=== PATIENT | female | born 1950 | race Hispanic/Latino ===

== ENCOUNTER 2018-04-05 22:56 | Inpatient (IN) | payer OTHER ==
[~2018-04-05] VITALS: Ht 154.9 cm; Wt 55.8 kg
[2018-04-05] MEDS ORDERED: NITROGLYCERIN 5 MG/ML 10 ML VIAL IV ONE (22:59)
[2018-04-05] MEDS ORDERED: IOPAMIDOL-370 100 ML VIAL IV ONE (22:59)
[2018-04-05] MEDS ORDERED: ISOVUE-370 50ML VIAL IV ONE (22:59)
[2018-04-05] MEDS ORDERED: LIDOCAINE HCL 2% 20ML ONE ×2 (22:59→23:37)
[2018-04-05] MEDS ORDERED: HEPARIN SODIUM 1000UNIT/ML 10ML VIAL ONE (22:59)
[2018-04-05] MEDS ORDERED: SODIUM BICARB 50MEQ 50ML VIAL ONE (22:59)
[2018-04-05] MEDS ORDERED: ATROPINE SULFATE 0.1 MG/ML 10 ML SYG IVP ONE (23:06)
[2018-04-05] MEDS ORDERED: DOPAMINE HCL 400 MG/D5%-WATER 0 ML IV ONE (23:06)
[2018-04-05] MEDS ORDERED: MEPERIDINE-PF 25 MG/ML SYG ONE (23:41)
[2018-04-05] MEDS ORDERED: MIDAZOLAM HCL 1 MG/ML 2ML VIAL ONE (23:41)
[2018-04-06] VITALS (49 sets, daily range): BP systolic 78–174; BP diastolic 38–113
[2018-04-06] MEDS ORDERED: MORPHINE SULFATE 5 MG/ML VIAL IV PRN (00:45)
[2018-04-06] MEDS ORDERED: ONDANSETRON HCL MDV 20ML 2 MG/ML VIAL IVP PRN (00:45)
[2018-04-06] MEDS ORDERED: GLUCAGON 1MG KIT 1 MG ML IM PRN ×2 (00:45→13:15)
[2018-04-06] MEDS ORDERED: NITROGLYCERIN 50 MG/D5% WATER 250 BOT IV PRN (00:45)
[2018-04-06] MEDS ORDERED: MORPHINE SULFATE 4 MG/1ML SYG IV PRN ×3 (00:45→13:15)
[2018-04-06] MEDS ORDERED: ALPRAZOLAM 0.5 MG TABLET PO PRN (00:45)
[2018-04-06] MEDS ORDERED: DEXTROSE 50%-WATER 50 ML DISP.SYRIN IV PRN ×2 (00:45→13:15)
[2018-04-06] MEDS ORDERED: POTASSIUM CHLORIDE 20MEQ/100ML 100 ML IV PRN (01:00)
[2018-04-06] MEDS ORDERED: LIDOCAINE HCL-MPF 1% 2ML VIAL IVP PRN (01:00)
[2018-04-06] MEDS ORDERED: POTASSIUM CHLORIDE 10% ELIXIR 20 MEQ/15 ML UDCUP PO PRN (01:00)
[2018-04-06] MEDS ORDERED: POTASSIUM CHLORIDE 20 MEQ ERTAB PO PRN (01:00)
[2018-04-06] MEDS ORDERED: HEPARIN 25000 UNITS/250 ML D5W 250 ML IV SCH (01:00)
[2018-04-06] MEDS ORDERED: HEPARIN SODIUM 5000UNIT/ML 1ML VIAL ONE (01:45)
[2018-04-06 02:05] LABS: BASOPHILS % (AUTO) 0.3 % (0.0-5.0); EOSINOPHILS % (AUTO) 0.4 % (0.0-8.0); HEMATOCRIT 39.8 % (36-48); LYMPHOCYTES % (AUTO) 9.9 % (21.0-51.0); MEAN CORPUSCULAR HEMOGLOBIN 27.8 pg (27.0-33.0); MEAN CORPUSCULAR HGB CONC 33.9 g/dL (32.0-36.0); MEAN CORPUSCULAR VOLUME 82.1 fL (79-99); NEUTROPHILS % (AUTO) 85.4 % (40.0-77.0); PLATELET COUNT (AUTO) 241 K/uL (130-400); RED BLOOD CELL COUNT(AUTO) 4.85 MIL/uL (4.00-5.50); RED CELL DISTRIBUTION WIDTH 13.2 % (11.0-15.5); WHITE BLOOD COUNT (AUTO) 13.9 K/uL (4.8-10.8)
[2018-04-06 02:11] LABS: HEMOGLOBIN A1C 8.9 % (4.0-6.0)
[2018-04-06 02:41] LABS: ALBUMIN 3.2 g/dL (3.5-5.0); BILIRUBIN,TOTAL 0.6 mg/dL (0.2-1.0); CREATINE KINASE MB 110.8 ng/mL (0.5-3.6); CREATININE 0.8 mg/dL (0.5-1.5); POTASSIUM 4.3 mmol/L (3.5-5.1); TOTAL PROTEIN, SERUM 7.3 g/dL (6.0-8.3)
[2018-04-06] MEDS ORDERED: FELO5TAB31 PO (03:01)
[2018-04-06] MEDS ORDERED: BISO1TAB7 PO (03:01)
[2018-04-06] MEDS ORDERED: GLIM2TAB3 PO (03:05)
[2018-04-06] MEDS ORDERED: ENAL20TA PO (03:05)
[2018-04-06 03:27] LABS: TROPONIN I 63.78 ng/mL (0.00-0.06)
[2018-04-06] MEDS ORDERED: HYDRALAZINE HCL 20 MG/ML VIAL ONE (07:07)
[2018-04-06] MEDS ORDERED: CEFUROXIME 1.5GM+NS 100ML 100 ML IV SCH ×2 (07:15→21:15)
[2018-04-06] MEDS ORDERED: HYDRALAZINE HCL 20 MG/ML VIAL IM PRN (07:15)
[2018-04-06] MEDS: SODIUM CHLORIDE 0.9% 1000ML 1,000 ML IV SCH ×3 (07:20→20:35)
[2018-04-06] MEDS: INSULIN HUMULIN R 100 UNIT/ML 3ML SQ SCH ×2 (07:24→11:30)
[2018-04-06] MEDS ORDERED: CEFUROXIME SODIUM 1.5 GM VIAL IVP SCH (07:30)
[2018-04-06] MEDS: AMLODIPINE BESYLATE 5 MG TAB PO SCH ×2 (07:56→09:07)
[2018-04-06] MEDS ORDERED: AMLODIPINE BESYLATE 5 MG TAB PO SCH (08:15)
[2018-04-06 08:45] LABS: CREATINE KINASE MB 99.7 ng/mL (0.5-3.6); CREATININE 0.8 mg/dL (0.5-1.5); POTASSIUM 4.1 mmol/L (3.5-5.1)
[2018-04-06] MEDS ORDERED: EPINEPHRINE 1 MG/ML 30ML VIAL IJ ONE (08:51)
[2018-04-06] MEDS ORDERED: NITROGLYCERIN 50 MG/D5% WATER 1 BOT ONE (08:51)
[2018-04-06] MEDS ORDERED: ASPIRIN 81MG TAB.CHEW PO SCH (09:00)
[2018-04-06] MEDS ORDERED: MAGNESIUM 2GM PREMIX 50ML 50 ML IV PRN (09:00)
[2018-04-06] MEDS ORDERED: OCTYL 2-CYANOACRYLATE 1 EACH TP ONE ×2 (09:25→13:55)
[2018-04-06] MEDS ORDERED: PAPAVERINE HCL 30 MG/ML 2ML VIAL ONE (09:25)
[2018-04-06] MEDS ORDERED: BACITRACIN 50,000 UNIT VIAL ONE (09:26)
[2018-04-06 09:47] LABS: TROPONIN I 87.88 ng/mL (0.00-0.06)
[2018-04-06] MEDS ORDERED: NEOSTIGMINE 5MG/5ML SYR IV ONE (10:07)
[2018-04-06] MEDS ORDERED: EPINEPHRINE 1 MG/ML AMPULE ONE (10:07)
[2018-04-06] MEDS ORDERED: AMINOCAPROIC ACID 250 MG/ML 20 ML VIAL IV ONE (10:07)
[2018-04-06] MEDS ORDERED: FENTANYL CITRATE PF 50 MCG/1 ML 20ML VIAL IJ ONE (10:07)
[2018-04-06] MEDS ORDERED: PROPOFOL 10 MG/ML 20ML VIAL IV ONE (10:07)
[2018-04-06] MEDS ORDERED: ESMOLOL HCL 10 MG/ML 10 ML VIAL ONE (10:07)
[2018-04-06] MEDS ORDERED: ROCURONIUM BROMIDE 10MG/1ML 5ML VL ONE (10:07)
[2018-04-06] MEDS ORDERED: GLYCOPYRROLATE 0.2 MG/ML 5 ML VIAL ONE (10:07)
[2018-04-06] MEDS ORDERED: PROTAMINE SULFATE 10 MG/ML 25ML VIAL IV ONE (10:07)
[2018-04-06] MEDS ORDERED: MILRINONE-D5W 20 MG/100 ML 0 ML IV ONE (10:07)
[2018-04-06] MEDS ORDERED: LIDOCAINE PF 2% 5ML ABBOJECT ONE (10:07)
[2018-04-06] MEDS ORDERED: MIDAZOLAM HCL 1 MG/ML 5ML VIAL ONE (10:07)
[2018-04-06] MEDS ORDERED: HEPARIN SODIUM 1000UNIT/ML 10ML VIAL ONE ×2 (10:07→10:56)
[2018-04-06] MEDS ORDERED: NOREPINEPHRINE BITARTRATE 1 MG/1 ML ML IV ONE ×3 (10:07→15:12)
[2018-04-06] MEDS ORDERED: CEFUROXIME SODIUM 1.5 GM VIAL ONE (10:10)
[2018-04-06 10:47] LABS: ABG BASE EXCESS -3.9 mmol/L (-2.0-3.0); ABG HCO3 20.6 mmol/L (21.0-28.0); ABG OXYGEN SATURATION 99.2 % (95.0-99.0); ABG PCO2 36 mmHg (32-45)
[2018-04-06] MEDS ORDERED: THROMBIN-JMI 5000 UNIT/VIAL TP ONE (10:56)
[2018-04-06 11:50] LABS: ABG BASE EXCESS 0.6 mmol/L (-2.0-3.0); ABG HCO3 24.5 mmol/L (21.0-28.0); ABG OXYGEN SATURATION 99.4 % (95.0-99.0); ABG PCO2 37 mmHg (32-45)
[2018-04-06] MEDS ORDERED: SODIUM CHLORIDE 0.9% 500ML 500 ML IV SCH (13:01)
[2018-04-06] MEDS ORDERED: SODIUM BICARB 8.4% 50ML SYRINGE ONE ×2 (13:11→13:32)
[2018-04-06] MEDS ORDERED: SODIUM CHLORIDE 0.9% 10 ML VIAL IVP PRN (13:15)
[2018-04-06] MEDS ORDERED: POTASSIUM PHOS 15 mMOL+NS250ML 250 ML IV PRN (13:15)
[2018-04-06] MEDS ORDERED: AMINOCAPROIC ACID 15,000 MG in SODIUM CHLORIDE 0.9% 250 ML IV SCH (13:15)
[2018-04-06] MEDS ORDERED: NITROGLYCERIN 50 MG/D5% WATER 250 BOT IV SCH (13:15)
[2018-04-06] MEDS ORDERED: PROPOFOL 1000 MG/100 ML 100 ML IV PRN (13:15)
[2018-04-06] MEDS ORDERED: SODIUM CHLORIDE 0.9% 1000ML 1,000 ML IV SCH (13:15)
[2018-04-06] MEDS ORDERED: NOREPINEPHRINE 4MG/NS 250ML 250 ML IV PRN (13:15)
[2018-04-06] MEDS ORDERED: MORPHINE SULFATE 2 MG/ML 1ML SYG IV PRN (13:15)
[2018-04-06] MEDS ORDERED: SODIUM CHLORIDE 0.9% 250 ML IV PRN (13:15)
[2018-04-06] MEDS ORDERED: NICARDIPINE HCL 100 MG in SODIUM CHLORIDE 0.9% 60 ML IV PRN (13:15)
[2018-04-06] MEDS ORDERED: ONDANSETRON HCL 4 MG/2 ML VIAL IV PRN (13:15)
[2018-04-06] MEDS ORDERED: TRAMADOL HCL 50 MG TABLET PO PRN (13:15)
[2018-04-06] MEDS ORDERED: CALCIUM GLUCONATE 1 GM in SODIUM CHLORIDE 0.9% 50 ML IV PRN (13:15)
[2018-04-06] MEDS ORDERED: ACETAMINOPHEN 650 MG SUPPOSITORY RC PRN (13:15)
[2018-04-06] MEDS ORDERED: EPINEPHRINE 2 MG in SODIUM CHLORIDE 0.9% 250 ML IV PRN (13:15)
[2018-04-06 13:23] LABS: ABG HCO3 23.5 mmol/L (21.0-28.0); ABG OXYGEN SATURATION 99.1 % (95.0-99.0); ABG PCO2 39 mmHg (32-45)
[2018-04-06] MEDS ORDERED: POTASSIUM CHLORIDE 20MEQ/100ML 100 ML IV ONE (13:47)
[2018-04-06] MEDS ORDERED: EPHEDRINE SULFATE 50 MG/ML AMPULE ONE (14:05)
[2018-04-06 14:34] LABS: HEMATOCRIT 30.2 % (36-48); MEAN CORPUSCULAR HEMOGLOBIN 28.4 pg (27.0-33.0); MEAN CORPUSCULAR HGB CONC 34.1 g/dL (32.0-36.0); MEAN CORPUSCULAR VOLUME 83.5 fL (79-99); PLATELET COUNT (AUTO) 291 K/uL (130-400); RED BLOOD CELL COUNT(AUTO) 3.62 MIL/uL (4.00-5.50)
[2018-04-06 14:45] LABS: CREATININE 1.1 mg/dL (0.5-1.5); MAGNESIUM 1.4 mg/dL (1.80-2.40); PHOSPHORUS 5.5 mg/dL (2.5-4.9); POTASSIUM 3.4 mmol/L (3.5-5.1)
[2018-04-06 14:46] LABS: WHITE BLOOD COUNT (AUTO) 34.2 K/uL (4.8-10.8)
[2018-04-06 15:01] LABS: ABG BASE EXCESS -11.6 mmol/L (-2.0-3.0); ABG HCO3 15.8 mmol/L (21.0-28.0); ABG OXYGEN SATURATION 98.4 % (95.0-99.0); ABG PCO2 42 mmHg (32-45)
[2018-04-06] MEDS ORDERED: SODIUM BICARB 50MEQ 50ML VIAL ONE ×2 (15:02→16:03)
[2018-04-06] MEDS: INSULIN REGULAR, HUMAN 3ML 100 UNIT in SODIUM CHLORIDE 0.9% 99 ML IV SCH ×2 (15:21)
[2018-04-06 15:27] LABS: BAND NEUTROPHILS % (MANUAL) 9 % (0-2); LYMPHOCYTES % (MANUAL) 1 % (22-44); MONOCYTES % (MANUAL) 7 % (2-9); SEGMENTED NEUTROPHILS % 83 % (40-70)
[2018-04-06 15:30] LABS: MAN.DIFF COMMENT-IMPRESSION MANUAL DIFFERENTIAL
[2018-04-06 15:34] LABS: PLATELET MORPHOLOGY COMMENT LARGE PLTS PRESENT
[2018-04-06 15:58] LABS: ABG BASE EXCESS -4.6 mmol/L (-2.0-3.0); ABG HCO3 21.4 mmol/L (21.0-28.0); ABG OXYGEN SATURATION 96.7 % (95.0-99.0); ABG PCO2 43 mmHg (32-45)
[2018-04-06] MEDS ORDERED: SODIUM BICARB 50MEQ 50ML VIAL IV PRN (16:00)
[2018-04-06] MEDS: MAGNESIUM 2GM PREMIX 50ML 50 ML IV PRN (16:25)
[2018-04-06] MEDS: ALBUMIN (HUMAN) 5% 250 ML IV PRN ×2 (16:59→18:33)
[2018-04-06] MEDS ORDERED: ALBUMIN (HUMAN) 5% 250 ML IV ONE ×2 (18:30→20:16)
[2018-04-06] MEDS: POTASSIUM CHLORIDE 20MEQ/100ML 100 ML IV PRN ×3 (18:39→21:46)
[2018-04-06 19:25] LABS: ABG BASE EXCESS -4.7 mmol/L (-2.0-3.0); ABG HCO3 20.5 mmol/L (21.0-28.0); ABG OXYGEN SATURATION 96.3 % (95.0-99.0); ABG PCO2 38 mmHg (32-45)
[2018-04-06] MEDS ORDERED: AMIODARONE HCL 900 MG in DEXTROSE 5%-WATER 500 ML IV SCH (20:00)
[2018-04-06] MEDS ORDERED: AMIODARONE HCL 150 MG in DEXTROSE 5%-WATER 100 ML IV SCH (20:00)
[2018-04-06] MEDS ORDERED: DIGOXIN 250 MCG/ML 2ML AMP ONE (20:14)
[2018-04-06] MEDS ORDERED: ATORVASTATIN CALCIUM 40 MG TABLET PO SCH (21:00)
[2018-04-06 22:55] LABS: ABG BASE EXCESS 1.1 mmol/L (-2.0-3.0); ABG HCO3 25.5 mmol/L (21.0-28.0); ABG OXYGEN SATURATION 97.3 % (95.0-99.0); ABG PCO2 40 mmHg (32-45)
[2018-04-06] MEDS: CEFUROXIME SODIUM 1.5 GM VIAL IVP SCH (23:43)
[2018-04-07] VITALS (21 sets, daily range): BP systolic 92–143; BP diastolic 39–74
[2018-04-07] MEDS: POTASSIUM CHLORIDE 20MEQ/100ML 100 ML IV PRN ×2 (00:06→02:22)
[2018-04-07 00:07] LABS: ABG HCO3 24.9 mmol/L (21.0-28.0); ABG OXYGEN SATURATION 96.9 % (95.0-99.0); ABG PCO2 37 mmHg (32-45)
[2018-04-07 02:07] LABS: ABG BASE EXCESS 2.5 mmol/L (-2.0-3.0); ABG HCO3 25.6 mmol/L (21.0-28.0); ABG OXYGEN SATURATION 97.1 % (95.0-99.0); ABG PCO2 34 mmHg (32-45)
[2018-04-07] MEDS: TRAMADOL HCL 50 MG TABLET PO PRN (02:23)
[2018-04-07] MEDS: ACETAMINOPHEN 325 MG TAB PO PRN ×2 (02:24→06:53)
[2018-04-07 03:31] LABS: BASOPHILS % (AUTO) 0.1 % (0.0-5.0); HEMATOCRIT 27.5 % (36-48); LYMPHOCYTES % (AUTO) 6.3 % (21.0-51.0); MEAN CORPUSCULAR HEMOGLOBIN 27.5 pg (27.0-33.0); MEAN CORPUSCULAR HGB CONC 33.8 g/dL (32.0-36.0); MEAN CORPUSCULAR VOLUME 81.4 fL (79-99); MONOCYTES % (AUTO) 10.1 % (3.0-13.0); NEUTROPHILS % (AUTO) 83.5 % (40.0-77.0); PLATELET COUNT (AUTO) 212 K/uL (130-400); RED BLOOD CELL COUNT(AUTO) 3.38 MIL/uL (4.00-5.50); RED CELL DISTRIBUTION WIDTH 13.3 % (11.0-15.5); WHITE BLOOD COUNT (AUTO) 21.3 K/uL (4.8-10.8)
[2018-04-07 03:36] LABS: CREATININE 1.1 mg/dL (0.5-1.5); MAGNESIUM 1.8 mg/dL (1.80-2.40); PHOSPHORUS 1.2 mg/dL (2.5-4.9); POTASSIUM 4.8 mmol/L (3.5-5.1)
[2018-04-07 04:43] LABS: ABG BASE EXCESS 2.4 mmol/L (-2.0-3.0); ABG HCO3 26.5 mmol/L (21.0-28.0); ABG OXYGEN SATURATION 93.6 % (95.0-99.0); ABG PCO2 39 mmHg (32-45)
[2018-04-07 05:31] LABS: ABG BASE EXCESS 3.2 mmol/L (-2.0-3.0); ABG HCO3 27.8 mmol/L (21.0-28.0); ABG OXYGEN SATURATION 96.1 % (95.0-99.0); ABG PCO2 42 mmHg (32-45)
[2018-04-07] MEDS ORDERED: CALCIUM GLUCONATE 1 GM/10 ML VIAL IV ONE (05:46)
[2018-04-07] MEDS: MAGNESIUM 2GM PREMIX 50ML 50 ML IV PRN (05:54)
[2018-04-07] MEDS: CEFUROXIME SODIUM 1.5 GM VIAL IVP SCH ×2 (08:10→20:31)
[2018-04-07] MEDS ORDERED: EPINEPHRINE 8 MG in SODIUM CHLORIDE 0.9% 250 ML IV PRN (08:30)
[2018-04-07 08:32] LABS: ABG HCO3 24.9 mmol/L (21.0-28.0); ABG OXYGEN SATURATION 94.4 % (95.0-99.0); ABG PCO2 36 mmHg (32-45)
[2018-04-07] MEDS: INSULIN REGULAR, HUMAN 3ML 100 UNIT in SODIUM CHLORIDE 0.9% 99 ML IV SCH ×2 (08:59)
[2018-04-07] MEDS ORDERED: PANTOPRAZOLE SODIUM 40 MG TABLET.DR PO SCH (09:00)
[2018-04-07] MEDS: FAMOTIDINE/PF 20 MG/2 ML VIAL IV SCH ×2 (09:41→20:26)
[2018-04-07 12:00] LABS: ABG BASE EXCESS -0.1 mmol/L (-2.0-3.0); ABG HCO3 22.7 mmol/L (21.0-28.0); ABG OXYGEN SATURATION 94.5 % (95.0-99.0); ABG PCO2 32 mmHg (32-45)
[2018-04-07] MEDS: SODIUM CHLORIDE 0.9% 1000ML 1,000 ML IV SCH (16:35)
[2018-04-08] VITALS (24 sets, daily range): BP systolic 91–134; BP diastolic 49–82
[2018-04-08 04:23] LABS: BASOPHILS % (AUTO) 0.1 % (0.0-5.0); HEMATOCRIT 23.4 % (36-48); LYMPHOCYTES % (AUTO) 6.6 % (21.0-51.0); MEAN CORPUSCULAR HEMOGLOBIN 28.4 pg (27.0-33.0); MEAN CORPUSCULAR HGB CONC 34.3 g/dL (32.0-36.0); MEAN CORPUSCULAR VOLUME 82.9 fL (79-99); MONOCYTES % (AUTO) 7.4 % (3.0-13.0); NEUTROPHILS % (AUTO) 85.9 % (40.0-77.0); NUCLEATED RED BLOOD CELLS 0.1 % (0.0-0.19); PLATELET COUNT (AUTO) 136 K/uL (130-400); RED BLOOD CELL COUNT(AUTO) 2.83 MIL/uL (4.00-5.50); RED CELL DISTRIBUTION WIDTH 13.7 % (11.0-15.5); WHITE BLOOD COUNT (AUTO) 19.9 K/uL (4.8-10.8)
[2018-04-08 05:04] LABS: MAGNESIUM 2.4 mg/dL (1.80-2.40); PHOSPHORUS 4.1 mg/dL (2.5-4.9); POTASSIUM 4.2 mmol/L (3.5-5.1)
[2018-04-08] MEDS: FAMOTIDINE/PF 20 MG/2 ML VIAL IV SCH ×2 (08:29→19:40)
[2018-04-08] MEDS ORDERED: ASPIRIN 81MG TAB.CHEW PO SCH (11:00)
[2018-04-08] MEDS: METOPROLOL TARTRATE 25 MG TAB PO SCH ×2 (12:44→19:40)
[2018-04-08] MEDS: ASPIRIN 325MG EC TAB 325 MG TABLET.DR PO SCH (12:44)
[2018-04-08] MEDS: DEXTROSE 5%-WATER 1,000 ML IV SCH (12:45)
[2018-04-08] MEDS: CHLORHEXIDINE GLUCONATE 473 ML MOUTHWASH MM SCH ×3 (13:12→19:40)
[2018-04-08] MEDS: INSULIN HUMULIN R 100 UNIT/ML 3ML SQ SCH ×2 (16:38→21:21)
[2018-04-08] MEDS: DEXAMETHASONE SOD PHOSPHATE 4 MG/ML 1ML VIAL IVP SCH (19:40)
[2018-04-08] MEDS: ATORVASTATIN CALCIUM 20 MG TABLET PO SCH (19:40)
[2018-04-09] VITALS (24 sets, daily range): BP systolic 95–147; BP diastolic 54–81
[2018-04-09] MEDS: DEXTROSE 5%-WATER 1,000 ML IV SCH (01:44)
[2018-04-09 03:57] LABS: HEMATOCRIT 23.4 % (36-48); MEAN CORPUSCULAR HEMOGLOBIN 27.5 pg (27.0-33.0); MEAN CORPUSCULAR HGB CONC 32.9 g/dL (32.0-36.0); MEAN CORPUSCULAR VOLUME 83.3 fL (79-99); NUCLEATED RED BLOOD CELLS 0.2 % (0.0-0.19); PLATELET COUNT (AUTO) 152 K/uL (130-400); RED BLOOD CELL COUNT(AUTO) 2.81 MIL/uL (4.00-5.50); RED CELL DISTRIBUTION WIDTH 13.9 % (11.0-15.5); WHITE BLOOD COUNT (AUTO) 18.6 K/uL (4.8-10.8)
[2018-04-09 04:20] LABS: CREATININE 0.9 mg/dL (0.5-1.5); POTASSIUM 3.7 mmol/L (3.5-5.1)
[2018-04-09] MEDS: INSULIN HUMULIN R 100 UNIT/ML 3ML SQ SCH ×4 (05:55→22:36)
[2018-04-09] MEDS: DEXAMETHASONE SOD PHOSPHATE 4 MG/ML 1ML VIAL IVP SCH ×2 (09:25→22:28)
[2018-04-09] MEDS: FAMOTIDINE/PF 20 MG/2 ML VIAL IV SCH ×2 (09:25→22:28)
[2018-04-09] MEDS: ASPIRIN 325MG EC TAB 325 MG TABLET.DR PO SCH (09:25)
[2018-04-09] MEDS: CHLORHEXIDINE GLUCONATE 473 ML MOUTHWASH MM SCH ×4 (09:26→22:29)
[2018-04-09] MEDS: FUROSEMIDE 20 MG TABLET PO SCH ×2 (09:26→22:27)
[2018-04-09] MEDS: METOPROLOL TARTRATE 25 MG TAB PO SCH ×2 (09:26→22:27)
[2018-04-09] MEDS: AMIODARONE HCL 200 MG TABLET PO SCH (09:26)
[2018-04-09] MEDS ORDERED: DOPAMINE 800MG/D5 250ML 250 ML IV PRN (15:15)
[2018-04-09] MEDS: ATORVASTATIN CALCIUM 20 MG TABLET PO SCH (22:26)
[2018-04-10] VITALS (23 sets, daily range): BP systolic 108–143; BP diastolic 53–91
[2018-04-10 04:02] LABS: BASOPHILS % (AUTO) 0.2 % (0.0-5.0); HEMATOCRIT 25.1 % (36-48); LYMPHOCYTES % (AUTO) 4.9 % (21.0-51.0); MEAN CORPUSCULAR HEMOGLOBIN 28.8 pg (27.0-33.0); MEAN CORPUSCULAR HGB CONC 34.6 g/dL (32.0-36.0); MEAN CORPUSCULAR VOLUME 83.2 fL (79-99); MONOCYTES % (AUTO) 3.4 % (3.0-13.0); NEUTROPHILS % (AUTO) 91.5 % (40.0-77.0); NUCLEATED RED BLOOD CELLS 0.2 % (0.0-0.19); PLATELET COUNT (AUTO) 179 K/uL (130-400); RED BLOOD CELL COUNT(AUTO) 3.01 MIL/uL (4.00-5.50); RED CELL DISTRIBUTION WIDTH 13.8 % (11.0-15.5); WHITE BLOOD COUNT (AUTO) 15.7 K/uL (4.8-10.8)
[2018-04-10 04:11] LABS: CREATININE 0.8 mg/dL (0.5-1.5); POTASSIUM 3.5 mmol/L (3.5-5.1)
[2018-04-10] MEDS: METOPROLOL TARTRATE 25 MG TAB PO SCH ×2 (08:24→21:37)
[2018-04-10] MEDS: ASPIRIN 325MG EC TAB 325 MG TABLET.DR PO SCH (08:24)
[2018-04-10] MEDS: FUROSEMIDE 20 MG TABLET PO SCH (08:24)
[2018-04-10] MEDS: FAMOTIDINE/PF 20 MG/2 ML VIAL IV SCH ×2 (08:24→21:36)
[2018-04-10] MEDS: AMIODARONE HCL 200 MG TABLET PO SCH (08:24)
[2018-04-10] MEDS: ENOXAPARIN SODIUM 30 MG/0.3 ML SQ SCH (08:25)
[2018-04-10] MEDS: CHLORHEXIDINE GLUCONATE 473 ML MOUTHWASH MM SCH ×4 (08:25→21:38)
[2018-04-10] MEDS: INSULIN HUMULIN R 100 UNIT/ML 3ML SQ SCH ×4 (09:02→21:49)
[2018-04-10] MEDS: ATORVASTATIN CALCIUM 20 MG TABLET PO SCH (21:36)
[2018-04-11] VITALS (36 sets, daily range): BP systolic 96–138; BP diastolic 37–84
[2018-04-11 03:46] LABS: HEMATOCRIT 26.1 % (36-48); MEAN CORPUSCULAR HEMOGLOBIN 28.8 pg (27.0-33.0); MEAN CORPUSCULAR HGB CONC 34.9 g/dL (32.0-36.0); MEAN CORPUSCULAR VOLUME 82.6 fL (79-99); NUCLEATED RED BLOOD CELLS 0.1 % (0.0-0.19); PLATELET COUNT (AUTO) 206 K/uL (130-400); RED BLOOD CELL COUNT(AUTO) 3.17 MIL/uL (4.00-5.50); RED CELL DISTRIBUTION WIDTH 13.4 % (11.0-15.5); WHITE BLOOD COUNT (AUTO) 12.8 K/uL (4.8-10.8)
[2018-04-11 03:56] LABS: CREATININE 0.8 mg/dL (0.5-1.5); POTASSIUM 3.1 mmol/L (3.5-5.1)
[2018-04-11] MEDS: INSULIN HUMULIN R 100 UNIT/ML 3ML SQ SCH ×3 (05:56→16:24)
[2018-04-11] MEDS: AMIODARONE HCL 200 MG TABLET PO SCH (08:03)
[2018-04-11] MEDS: FAMOTIDINE/PF 20 MG/2 ML VIAL IV SCH ×2 (08:03→20:46)
[2018-04-11] MEDS: ASPIRIN 325MG EC TAB 325 MG TABLET.DR PO SCH (08:03)
[2018-04-11] MEDS: METOPROLOL TARTRATE 25 MG TAB PO SCH ×2 (08:03→20:46)
[2018-04-11] MEDS: POTASSIUM CHLORIDE 20MEQ/100ML 100 ML IV PRN (08:03)
[2018-04-11] MEDS: ENOXAPARIN SODIUM 30 MG/0.3 ML SQ SCH (08:04)
[2018-04-11] MEDS: CHLORHEXIDINE GLUCONATE 473 ML MOUTHWASH MM SCH ×4 (08:32→20:46)
[2018-04-11] MEDS ORDERED: LIDOCAINE HCL-MPF 1% 2ML VIAL IVP PRN ×2 (08:45)
[2018-04-11] MEDS ORDERED: POTASSIUM CHLORIDE 20 MEQ ERTAB PO PRN ×2 (08:45)
[2018-04-11] MEDS ORDERED: POTASSIUM CHLORIDE 10% ELIXIR 20 MEQ/15 ML UDCUP PO PRN (08:45)
[2018-04-11] MEDS ORDERED: POTASSIUM CHLORIDE 20MEQ/100ML 100 ML IV PRN ×2 (08:45)
[2018-04-11] MEDS: POTASSIUM CHLORIDE 10% ELIXIR 20 MEQ/15 ML UDCUP PO PRN (11:06)
[2018-04-11] MEDS: ATORVASTATIN CALCIUM 20 MG TABLET PO SCH (20:46)
[2018-04-12] VITALS (18 sets, daily range): BP systolic 98–131; BP diastolic 46–79
[2018-04-12] MEDS: INSULIN HUMULIN R 100 UNIT/ML 3ML SQ SCH ×4 (00:24→18:11)
[2018-04-12 04:14] LABS: CREATININE 0.7 mg/dL (0.5-1.5)
[2018-04-12] MEDS: FAMOTIDINE/PF 20 MG/2 ML VIAL IV SCH ×2 (10:40→20:51)
[2018-04-12] MEDS: METOPROLOL TARTRATE 25 MG TAB PO SCH ×2 (10:40→20:51)
[2018-04-12] MEDS: AMIODARONE HCL 200 MG TABLET PO SCH (10:40)
[2018-04-12] MEDS: ASPIRIN 325MG EC TAB 325 MG TABLET.DR PO SCH (10:40)
[2018-04-12] MEDS: ENOXAPARIN SODIUM 30 MG/0.3 ML SQ SCH (10:41)
[2018-04-12] MEDS: CHLORHEXIDINE GLUCONATE 473 ML MOUTHWASH MM SCH ×4 (10:41→20:52)
[2018-04-12] MEDS: ATORVASTATIN CALCIUM 20 MG TABLET PO SCH (20:51)
[2018-04-13] VITALS (28 sets, daily range): BP systolic 90–132; BP diastolic 48–85
[2018-04-13] MEDS: INSULIN HUMULIN R 100 UNIT/ML 3ML SQ SCH ×4 (00:33→19:19)
[2018-04-13 03:44] LABS: BASOPHILS % (AUTO) 0.6 % (0.0-5.0); EOSINOPHILS % (AUTO) 1.4 % (0.0-8.0); HEMATOCRIT 28.3 % (36-48); LYMPHOCYTES % (AUTO) 13.2 % (21.0-51.0); MEAN CORPUSCULAR HEMOGLOBIN 28.2 pg (27.0-33.0); MEAN CORPUSCULAR HGB CONC 33.8 g/dL (32.0-36.0); MEAN CORPUSCULAR VOLUME 83.6 fL (79-99); NEUTROPHILS % (AUTO) 73.8 % (40.0-77.0); NUCLEATED RED BLOOD CELLS 0.1 % (0.0-0.19); PLATELET COUNT (AUTO) 262 K/uL (130-400); RED BLOOD CELL COUNT(AUTO) 3.38 MIL/uL (4.00-5.50); RED CELL DISTRIBUTION WIDTH 13.6 % (11.0-15.5); WHITE BLOOD COUNT (AUTO) 13.7 K/uL (4.8-10.8)
[2018-04-13 03:55] LABS: INR 0.94 (0.85-1.15); PARTIAL THROMBOPLASTIN TIME 26.2 SEC (26.3-35.5); PROTHROMBIN TIME 9.9 SEC (9.6-11.6)
[2018-04-13] MEDS: ENOXAPARIN SODIUM 30 MG/0.3 ML SQ SCH (09:00)
[2018-04-13] MEDS: METOPROLOL TARTRATE 25 MG TAB PO SCH ×2 (09:00→20:14)
[2018-04-13] MEDS: FAMOTIDINE/PF 20 MG/2 ML VIAL IV SCH ×2 (09:00→20:14)
[2018-04-13] MEDS: CHLORHEXIDINE GLUCONATE 473 ML MOUTHWASH MM SCH ×4 (09:00→20:19)
[2018-04-13] MEDS: ASPIRIN 325MG EC TAB 325 MG TABLET.DR PO SCH (09:00)
[2018-04-13] MEDS ORDERED: PROPOFOL 10 MG/ML 20ML VIAL IV ONE (11:36)
[2018-04-13] MEDS ORDERED: CEFAZOLIN SODIUM 1 GM VIAL ONE ×2 (11:41→11:42)
[2018-04-13] MEDS: AMIODARONE HCL 200 MG TABLET PO SCH (15:41)
[2018-04-13] MEDS: TRAMADOL HCL 50 MG TABLET PO PRN (20:14)
[2018-04-13] MEDS: ATORVASTATIN CALCIUM 20 MG TABLET PO SCH (20:14)
[2018-04-14 04:00] VITALS: BP 128/67
[2018-04-14] MEDS: INSULIN HUMULIN R 100 UNIT/ML 3ML SQ SCH ×5 (05:51→23:54)
[2018-04-14 07:24] VITALS: BP 132/66
[2018-04-14] MEDS ORDERED: ASPIRIN 81MG TAB.CHEW ONE (08:02)
[2018-04-14] MEDS: CHLORHEXIDINE GLUCONATE 473 ML MOUTHWASH MM SCH ×4 (08:10→20:41)
[2018-04-14] MEDS: AMIODARONE HCL 200 MG TABLET PO SCH (08:10)
[2018-04-14] MEDS: FAMOTIDINE/PF 20 MG/2 ML VIAL IV SCH ×2 (08:10→20:41)
[2018-04-14] MEDS: METOPROLOL TARTRATE 25 MG TAB PO SCH ×2 (08:10→20:41)
[2018-04-14] MEDS: ENOXAPARIN SODIUM 30 MG/0.3 ML SQ SCH (08:11)
[2018-04-14] MEDS: FUROSEMIDE 20 MG TABLET PO SCH (08:11)
[2018-04-14 11:07] VITALS: BP 122/71
[2018-04-14 16:02] VITALS: BP 125/65
[2018-04-14 19:59] VITALS: BP 123/74
[2018-04-14] MEDS: ATORVASTATIN CALCIUM 20 MG TABLET PO SCH (20:41)
[2018-04-14] MEDS: ASPIRIN 325 MG TABLET PO SCH (20:41)
[2018-04-14] MEDS: TRAMADOL HCL 50 MG TABLET PO PRN (20:53)
[2018-04-14 23:37] VITALS: BP 121/65
[2018-04-15 04:00] VITALS: BP 127/69
[2018-04-15] MEDS: INSULIN HUMULIN R 100 UNIT/ML 3ML SQ SCH ×3 (05:46→18:16)
[2018-04-15 08:06] VITALS: BP 146/74
[2018-04-15] MEDS: ASPIRIN 325 MG TABLET PO SCH (09:11)
[2018-04-15] MEDS: CHLORHEXIDINE GLUCONATE 473 ML MOUTHWASH MM SCH ×4 (09:11→21:40)
[2018-04-15] MEDS: FAMOTIDINE/PF 20 MG/2 ML VIAL IV SCH ×2 (09:11→21:37)
[2018-04-15] MEDS: AMIODARONE HCL 200 MG TABLET PO SCH (09:12)
[2018-04-15] MEDS: ENOXAPARIN SODIUM 30 MG/0.3 ML SQ SCH (09:12)
[2018-04-15] MEDS: FUROSEMIDE 20 MG TABLET PO SCH (09:12)
[2018-04-15] MEDS: METOPROLOL TARTRATE 25 MG TAB PO SCH ×2 (09:12→21:37)
[2018-04-15 12:00] VITALS: BP 103/56
[2018-04-15 16:00] VITALS: BP 121/71
[2018-04-15 19:22] VITALS: BP 133/60
[2018-04-15] MEDS: ATORVASTATIN CALCIUM 20 MG TABLET PO SCH (21:37)
[2018-04-15 23:32] VITALS: BP 129/67
[2018-04-16 04:00] VITALS: BP 134/70
[2018-04-16] MEDS: INSULIN HUMULIN R 100 UNIT/ML 3ML SQ SCH ×4 (06:13→18:27)
[2018-04-16 07:00] VITALS: BP 120/73
[2018-04-16] MEDS: METOPROLOL TARTRATE 25 MG TAB PO SCH ×2 (08:57→21:16)
[2018-04-16] MEDS: FAMOTIDINE/PF 20 MG/2 ML VIAL IV SCH ×2 (08:58→21:15)
[2018-04-16] MEDS: FUROSEMIDE 20 MG TABLET PO SCH (08:58)
[2018-04-16] MEDS: ASPIRIN 325 MG TABLET PO SCH (08:59)
[2018-04-16] MEDS: AMIODARONE HCL 200 MG TABLET PO SCH (09:00)
[2018-04-16] MEDS: ENOXAPARIN SODIUM 30 MG/0.3 ML SQ SCH (09:00)
[2018-04-16] MEDS: CHLORHEXIDINE GLUCONATE 473 ML MOUTHWASH MM SCH ×4 (09:01→21:16)
[2018-04-16 11:00] VITALS: BP 108/66
[2018-04-16 16:20] VITALS: BP 119/70
[2018-04-16 19:56] VITALS: BP 134/66
[2018-04-16] MEDS: ATORVASTATIN CALCIUM 20 MG TABLET PO SCH (21:15)
[2018-04-16 23:45] VITALS: BP 150/76
[2018-04-17] MEDS: INSULIN HUMULIN R 100 UNIT/ML 3ML SQ SCH ×4 (00:52→18:15)
[2018-04-17 04:00] VITALS: BP 155/79
[2018-04-17 04:18] LABS: CREATININE 0.6 mg/dL (0.5-1.5); POTASSIUM 3.5 mmol/L (3.5-5.1)
[2018-04-17 07:27] VITALS: BP 115/72
[2018-04-17] MEDS: AMIODARONE HCL 200 MG TABLET PO SCH (08:05)
[2018-04-17] MEDS: ASPIRIN 325 MG TABLET PO SCH (08:05)
[2018-04-17] MEDS: FUROSEMIDE 20 MG TABLET PO SCH (08:05)
[2018-04-17] MEDS: ENOXAPARIN SODIUM 30 MG/0.3 ML SQ SCH (08:06)
[2018-04-17] MEDS: METOPROLOL TARTRATE 25 MG TAB PO SCH ×2 (08:06→20:55)
[2018-04-17] MEDS: CHLORHEXIDINE GLUCONATE 473 ML MOUTHWASH MM SCH ×4 (08:06→20:56)
[2018-04-17] MEDS: FAMOTIDINE/PF 20 MG/2 ML VIAL IV SCH ×2 (08:06→20:55)
[2018-04-17 11:26] VITALS: BP 111/65
[2018-04-17 16:21] VITALS: BP 119/70
[2018-04-17 19:49] VITALS: BP 120/67
[2018-04-17] MEDS: ATORVASTATIN CALCIUM 20 MG TABLET PO SCH (20:55)
[2018-04-18] VITALS (7 sets, daily range): BP systolic 109–134; BP diastolic 63–79
[2018-04-18] MEDS: INSULIN HUMULIN R 100 UNIT/ML 3ML SQ SCH ×4 (01:11→18:00)
[2018-04-18] MEDS: AMIODARONE HCL 200 MG TABLET PO SCH (18:30)
[2018-04-18] MEDS: METOPROLOL TARTRATE 25 MG TAB PO SCH ×2 (18:30→19:58)
[2018-04-18] MEDS: FUROSEMIDE 20 MG TABLET PO SCH (18:30)
[2018-04-18] MEDS: ENOXAPARIN SODIUM 30 MG/0.3 ML SQ SCH (18:30)
[2018-04-18] MEDS: ASPIRIN 325 MG TABLET PO SCH (18:30)
[2018-04-19] MEDS: ATORVASTATIN CALCIUM 20 MG TABLET PO SCH (00:10)
[2018-04-19] MEDS: INSULIN HUMULIN R 100 UNIT/ML 3ML SQ SCH ×4 (00:11→16:58)
[2018-04-19 03:36] VITALS: BP 136/74
[2018-04-19 03:52] LABS: HEMATOCRIT 25.6 % (36-48); MEAN CORPUSCULAR HEMOGLOBIN 28.2 pg (27.0-33.0); MEAN CORPUSCULAR HGB CONC 34.2 g/dL (32.0-36.0); MEAN CORPUSCULAR VOLUME 82.4 fL (79-99); NUCLEATED RED BLOOD CELLS 0.1 % (0.0-0.19); PLATELET COUNT (AUTO) 507 K/uL (130-400); RED BLOOD CELL COUNT(AUTO) 3.11 MIL/uL (4.00-5.50); RED CELL DISTRIBUTION WIDTH 13.9 % (11.0-15.5); WHITE BLOOD COUNT (AUTO) 13.9 K/uL (4.8-10.8)
[2018-04-19 03:59] LABS: CREATININE 0.7 mg/dL (0.5-1.5); MAGNESIUM 1.8 mg/dL (1.80-2.40); POTASSIUM 3.6 mmol/L (3.5-5.1)
[2018-04-19] MEDS: POTASSIUM CHLORIDE 10% ELIXIR 20 MEQ/15 ML UDCUP PO PRN ×2 (05:02→06:40)
[2018-04-19] MEDS: MAGNESIUM 2GM PREMIX 50ML 50 ML IV PRN (05:38)
[2018-04-19 07:00] VITALS: BP 127/74
[2018-04-19] MEDS: ASPIRIN 325 MG TABLET PO SCH (10:47)
[2018-04-19] MEDS: FUROSEMIDE 20 MG TABLET PO SCH (10:47)
[2018-04-19] MEDS: AMIODARONE HCL 200 MG TABLET PO SCH (10:47)
[2018-04-19] MEDS: METOPROLOL TARTRATE 25 MG TAB PO SCH (10:47)
[2018-04-19] MEDS: ENOXAPARIN SODIUM 30 MG/0.3 ML SQ SCH (10:48)
[2018-04-19 11:00] VITALS: BP 107/66
[2018-04-19 16:00] VITALS: BP 134/65
== END 2018-04-19 19:03 | DRG 215 ==
LOC: EDHIP 23:31 → 2CH 23:40 → 2BH 04-06 00:48 → 2CV 04-06 10:38 → 2BH 04-07 15:36 → 2AH 04-15 21:17
PROVIDERS: ADMIT Internal Medicine Critical Care Medicine; ATTEND Internal Medicine Critical Care Medicine
PROC: B2151ZZ Fluoroscopy of Left Heart using Low Osmolar Contrast (ICD-10-PCS; 2018-04-06)
PROC: B2111ZZ Fluoroscopy of Multiple Coronary Arteries using Low Osmolar Contrast (ICD-10-PCS; 2018-04-06)
PROC: 02100Z9 Bypass Coronary Artery, One Artery from Left Internal Mammary, Open Approach (ICD-10-PCS; 2018-04-06)
PROC: 021209W Bypass Coronary Artery, Three Arteries from Aorta with Autologous Venous Tissue, Open Approach (ICD-10-PCS; 2018-04-06)
PROC: 02PA3RZ Removal of Short-term External Heart Assist System from Heart, Percutaneous Approach (ICD-10-PCS; 2018-04-06)
PROC: 04QK0ZZ Repair Right Femoral Artery, Open Approach (ICD-10-PCS; 2018-04-06)
PROC: 06BQ4ZZ Excision of Left Saphenous Vein, Percutaneous Endoscopic Approach (ICD-10-PCS; 2018-04-06)
PROC: 06BP4ZZ Excision of Right Saphenous Vein, Percutaneous Endoscopic Approach (ICD-10-PCS; 2018-04-06)
PROC: 30233R1 Transfusion of Nonautologous Platelets into Peripheral Vein, Percutaneous Approach (ICD-10-PCS; 2018-04-06)
PROC: 0BH17EZ Insertion of Endotracheal Airway into Trachea, Via Natural or Artificial Opening (ICD-10-PCS; 2018-04-06)
PROC: 5A1935Z Respiratory Ventilation, Less than 24 Consecutive Hours (ICD-10-PCS; 2018-04-06)
PROC: 5A0221D Assistance with Cardiac Output using Impeller Pump, Continuous (ICD-10-PCS; principal; 2018-04-06 07:30)
PROC: 02HA3RZ Insertion of Short-term External Heart Assist System into Heart, Percutaneous Approach (ICD-10-PCS; 2018-04-06 07:30)
PROC: 4A023N7 Measurement of Cardiac Sampling and Pressure, Left Heart, Percutaneous Approach (ICD-10-PCS; 2018-04-06 07:30)
PROC: 0DJ08ZZ Inspection of Upper Intestinal Tract, Via Natural or Artificial Opening Endoscopic (ICD-10-PCS; 2018-04-13)
PROC: 0DH64UZ Insertion of Feeding Device into Stomach, Percutaneous Endoscopic Approach (ICD-10-PCS; 2018-04-13)
DX: I21.09 ST elevation (STEMI) myocardial infarction involving other coronary artery of anterior wall (principal); I63.9 Cerebral infarction, unspecified; I50.41 Acute combined systolic (congestive) and diastolic (congestive) heart failure; D62 Acute posthemorrhagic anemia; G81.90 Hemiplegia, unspecified affecting unspecified side; R47.01 Aphasia; I25.110 Atherosclerotic heart disease of native coronary artery with unstable angina pectoris; I11.0 Hypertensive heart disease with heart failure; D72.829 Elevated white blood cell count, unspecified; E11.9 Type 2 diabetes mellitus without complications; E78.5 Hyperlipidemia, unspecified; S30.1XXA Contusion of abdominal wall, initial encounter; X58.XXXA Exposure to other specified factors, initial encounter; I25.5 Ischemic cardiomyopathy; R13.10 Dysphagia, unspecified; R29.810 Facial weakness; E87.6 Hypokalemia; I48.91 Unspecified atrial fibrillation; I25.2 Old myocardial infarction; Z74.01 Bed confinement status; Z79.82 Long term (current) use of aspirin; Z79.899 Other long term (current) drug therapy; Z82.49 Family history of ischemic heart disease and other diseases of the circulatory system; Z86.73 Personal history of transient ischemic attack (TIA), and cerebral infarction without residual deficits; Z90.710 Acquired absence of both cervix and uterus; Y93.89 Activity, other specified; Y92.89 Other specified places as the place of occurrence of the external cause; Y99.8 Other external cause status
CPT/HCPCS: 33990; 36415; 70450; 71045; 74230; 80048; 80053; 80061; 82140; 82330; 82435; 82550; 82553; 82803; 82947; 82948; 83036; 83605; 83735; 83874; 84100; 84132; 84295; 84439; 84443; 84481; 84484; 85018; 85025; 85027; 85347; 85610; 85730; 86850; 86900; 86901; 86922; 87040; 92507; 92522; 92526; 92610; 92611; 93005; 93306; 93308; 93458; 93880; 94002; 94003; 94150; 97039; 99156; 99157; A4218; A4344; A7048; C1729; C1769; C1887; C1894; J0171; J0282; J0360; J0461; J0610; J0690; J0697; J1100; J1160; J1265; J1644; J1650; J1815; J2001; J2175; J2250; J2260; J2440; J2704; J2710; J2720; J3010; J3475; J3480; J3490; J7030; J7040; J7060; J7070; P9034; P9045; Q9967

== ENCOUNTER 2018-07-19 11:30 | Observation (INO) | payer OTHER ==
[2018-07-18 12:06] VITALS: BP 158/83
[2018-07-18 12:23] LABS: BASOPHILS % (AUTO) 1.2 % (0.0-5.0); EOSINOPHILS % (AUTO) 1.5 % (0.0-8.0); HEMATOCRIT 42.9 % (36-48); LYMPHOCYTES % (AUTO) 16.1 % (21.0-51.0); MEAN CORPUSCULAR HEMOGLOBIN 24.4 pg (27.0-33.0); MEAN CORPUSCULAR HGB CONC 31.8 g/dL (32.0-36.0); MEAN CORPUSCULAR VOLUME 76.6 fL (79-99); MONOCYTES % (AUTO) 9.4 % (3.0-13.0); NEUTROPHILS % (AUTO) 71.8 % (40.0-77.0); PLATELET COUNT (AUTO) 321 K/uL (130-400); RED CELL DISTRIBUTION WIDTH 16.8 % (11.0-15.5); WHITE BLOOD COUNT (AUTO) 7.8 K/uL (4.8-10.8)
[2018-07-18 12:34] LABS: CREATININE 1.1 mg/dL (0.5-1.5); POTASSIUM 4.4 mmol/L (3.5-5.1)
[2018-07-18 12:35] LABS: PARTIAL THROMBOPLASTIN TIME 30.2 SEC (26.3-35.5); PROTHROMBIN TIME 10.5 SEC (9.6-11.6)
[~2018-07-19] VITALS: Ht 152.4 cm; Wt 51.5 kg
[~2018-07-19 11:30] MED LIST: AEC81 PO; AMIO200T5 PO; ATOR20TA65 PO; DIPH25 PO; GLIM2TAB3 PO; LOSA25TA16 PO; METO25TA6 PO
[2018-07-19 11:35] VITALS: BP 142/72
[2018-07-19] MEDS ORDERED: SODIUM CHLORIDE 0.9% 1000ML 1,000 ML IV ONE (12:11)
[2018-07-19] MEDS ORDERED: BUPIVACAINE/PF 0.25% 50ML VIAL IJ ONE (15:57)
[2018-07-19] MEDS ORDERED: CEFAZOLIN SODIUM 1 GM VIAL ONE (15:57)
[2018-07-19] MEDS ORDERED: LIDOCAINE HCL 1% MDV 50ML VIAL ONE (15:57)
[2018-07-19] MEDS ORDERED: MEPERIDINE-PF 25 MG/ML SYG ONE (16:20)
[2018-07-19] MEDS ORDERED: MIDAZOLAM HCL 1 MG/ML 2ML VIAL ONE (16:20)
[2018-07-19] MEDS ORDERED: OCTYL 2-CYANOACRYLATE 1 EACH TP ONE (17:06)
[2018-07-19] MEDS ORDERED: DOXY100C2 PO (17:24)
[2018-07-19] MEDS ORDERED: ACETAMINOPHEN-CODEINE 300/30MG TAB PO PRN ×2 (17:30)
[2018-07-19] MEDS ORDERED: TEMAZEPAM 30 MG CAP PO PRN (17:30)
[2018-07-19] MEDS ORDERED: ACETAMINOPHEN 325 MG TAB PO PRN ×2 (17:30)
[2018-07-19] MEDS ORDERED: CEFAZOLIN SODIUM 1 GM VIAL IVP SCH (17:30)
[2018-07-19] MEDS ORDERED: ONDANSETRON HCL 4 MG/2 ML VIAL IV PRN (17:30)
[2018-07-19 17:50] VITALS: BP 153/83
[2018-07-19 18:08] VITALS: BP 135/77
[2018-07-19 20:08] VITALS: BP 187/79
[2018-07-19] MEDS ORDERED: DIPHENHYDRAMINE HCL 25 MG CAPSULE PO SCH (21:00)
[2018-07-19] MEDS: METOPROLOL TARTRATE 25 MG TAB PO SCH (21:32)
[2018-07-20] VITALS (12 sets, daily range): BP systolic 132–188; BP diastolic 71–102
[2018-07-20] MEDS ORDERED: CEFAZOLIN SODIUM 1 GM VIAL IVP SCH ×3 (05:00→06:56)
[2018-07-20] MEDS: METOPROLOL TARTRATE 25 MG TAB PO SCH (08:30)
[2018-07-20] MEDS ORDERED: LIDOCAINE HCL MPF 1% 5ML VIAL ONE (08:57)
[2018-07-20] MEDS ORDERED: ASPIRIN 81 MG EC TAB PO SCH (09:00)
[2018-07-20] MEDS ORDERED: AMIODARONE HCL 200 MG TABLET PO SCH (09:00)
[2018-07-20] MEDS ORDERED: LOSARTAN 50 MG TABLET PO SCH (09:00)
[2018-07-20] MEDS ORDERED: GLIMEPIRIDE 2 MG TABLET PO SCH (09:00)
[2018-07-20] MEDS ORDERED: ATORVASTATIN CALCIUM 20 MG TABLET PO SCH (09:00)
== END 2018-07-20 17:40 | disposition home or self-care (01) ==
LOC: DAH 11:30 → DAHIP 11:31 → DAH 11:31 → 2AH 18:22
PROVIDERS: ADMIT Internal Medicine Cardiovascular Disease; ATTEND Internal Medicine Cardiovascular Disease
DX: I25.5 Ischemic cardiomyopathy (principal); I25.10 Atherosclerotic heart disease of native coronary artery without angina pectoris; E11.9 Type 2 diabetes mellitus without complications; E78.5 Hyperlipidemia, unspecified; I10 Essential (primary) hypertension; J90 Pleural effusion, not elsewhere classified; G81.91 Hemiplegia, unspecified affecting right dominant side; I25.2 Old myocardial infarction; Z95.1 Presence of aortocoronary bypass graft; Z95.810 Presence of automatic (implantable) cardiac defibrillator; Z79.01 Long term (current) use of anticoagulants; Z83.3 Family history of diabetes mellitus
CPT/HCPCS: 32555; 33249; 36415; 71045; 71046; 80048; 82948 ×2; 85025; 85610; 85730; 93005; 96374; A4218; A4606; C1722; C1895; G0378 ×30; J0690 ×2; J2175; J2250; J3490 ×3; J7030; Q0163; 99156; 99157

== ENCOUNTER 2019-11-30 05:53 | Day surgery (SDC) | payer OTHER ==
[2019-11-29 16:54] LABS: BASOPHILS % (AUTO) 0.2 % (0.0-5.0); HEMATOCRIT 37.4 % (36-48); LYMPHOCYTES % (AUTO) 21.3 % (21.0-51.0); MEAN CORPUSCULAR HEMOGLOBIN 27.4 pg (27.0-33.0); MEAN CORPUSCULAR VOLUME 88.2 fL (79-99); MONOCYTES % (AUTO) 8.8 % (3.0-13.0); NEUTROPHILS % (AUTO) 67.5 % (40.0-77.0); PLATELET COUNT (AUTO) 225 K/uL (130-400); RED BLOOD CELL COUNT(AUTO) 4.24 MIL/uL (4.00-5.50); RED CELL DISTRIBUTION WIDTH 14.5 % (11.0-15.5); WHITE BLOOD COUNT (AUTO) 5.1 K/uL (4.8-10.8)
[2019-11-29 16:58] LABS: APPEARANCE,URINE Clear (CLEAR); BILIRUBIN,URINE Negative (NEGATIVE); COLOR,URINE Yellow (YELLOW); GLUCOSE, URINE (UA) Negative (NEGATIVE); KETONES,URINE Negative (NEGATIVE); LEUKOCYTE ESTERASE ,URINE Small (NEGATIVE); NITRATE,URINE Negative (NEGATIVE); OCCULT BLOOD,URINE Negative (NEGATIVE); PROTEIN,URINE Negative (NEGATIVE)
[2019-11-29 17:07] LABS: INR 0.98 (0.85-1.15); PARTIAL THROMBOPLASTIN TIME 27.5 SEC (26.3-35.5); PROTHROMBIN TIME 10.3 SEC (9.6-11.6)
[2019-11-29 17:16] VITALS: BP 140/75
[2019-11-29 17:31] LABS: BACTERIA,URINE Few /HPF (None Seen); MUCUS,URINE Few LPF (None Seen); SQUAMOUS EPITHELIAL CELL,UR 0-2 /HPF (0-2)
[2019-11-29 17:31] LABS: CREATININE 0.9 mg/dL (0.5-1.5); POTASSIUM 3.2 mmol/L (3.5-5.1)
--- NOTE | 2019-11-29 18:27 | NUR ---
SPOKE WITH DR. PRIDE AND HE IS AWARE OF ABNORMAL LABS NO NEW ORDERS AT THIS TIME.
[2019-11-30] VITALS (10 sets, daily range): BP systolic 96–157; BP diastolic 41–61
[~2019-11-30] VITALS: Ht 180.3 cm; Wt 57.1 kg
[~2019-11-30 05:53] MED LIST changes: +ALEN70TA10 PO; -AMIO200T5 PO; -ATOR20TA65 PO; +ATOR40TA71 PO; +CLOP75TA14 PO; -DIPH25 PO; +FURO40TA5 PO; -GLIM2TAB3 PO; -LOSA25TA16 PO; +LOSA50TA64 PO; -METO25TA6 PO; +PIOG30TA70 PO; +SODIUM CHLORIDE 0.9% 500ML 500 ML IV SCH
[2019-11-30] MEDS ORDERED: SODIUM CHLORIDE 0.9% 1000ML 1,000 ML IV ONE (06:04)
--- NOTE | 2019-11-30 07:00 | NUR ---
PROCEDURE PT HERE FOR PROCEDURE. DENIES ANY CHEST PAIN HAS 5 SMALL ULCERS TO LEFT FOOT. DRY. 1 SMALL WOUND TO LEFT SIDE OF FOOT. COVERED WITH BAND AID FROM BUNION SURGERY
[2019-11-30] MEDS ORDERED: NITROGLYCERIN 1 MG/VIAL VIAL IV ONE (07:09)
[2019-11-30] MEDS ORDERED: IODIXANOL 320 MG/ML 100 ML VIAL ONE (07:09)
[2019-11-30] MEDS ORDERED: HEPARIN SODIUM 1000UNIT/ML 10ML VIAL ONE (07:09)
[2019-11-30] MEDS ORDERED: MIDAZOLAM HCL 1 MG/ML 2ML VIAL ONE (07:10)
[2019-11-30] MEDS ORDERED: FENTANYL CITRATE PF 50 MCG/1 ML 2ML VIAL ONE (07:10)
[2019-11-30] MEDS ORDERED: LIDOCAINE HCL 2% 20ML ONE (07:10)
--- NOTE | 2019-11-30 07:25 | NUR ---
PROCEDURE PT TAKEN TO PROCEDURE BY PEDIATRIC ONCOLOGIST STAFF SHEILA RIGGS.
[2019-11-30] MEDS ORDERED: CLOPIDOGREL BISULFATE 300 MG TAB ONE (08:15)
[2019-11-30] MEDS ORDERED: ASPIRIN 325MG EC TAB 325 MG TABLET.DR PO ONE (08:15)
[2019-11-30] MEDS ORDERED: HYDRALAZINE HCL 20 MG/ML VIAL ONE (08:27)
[2019-11-30] MEDS ORDERED: LABETALOL 20 MG/4 ML DISP.SYRIN IV ONE (08:57)
[2019-11-30] MEDS ORDERED: DEXTROSE 50%-WATER 50 ML DISP.SYRIN IV PRN (10:00)
[2019-11-30] MEDS ORDERED: GLUCAGON 1MG KIT 1 MG ML IM PRN (10:00)
--- NOTE | 2019-11-30 10:15 | NUR ---
PROCEDURE PT HERE FROM PROCEDURE. SITE TO RIGHT GROIN SOFT AND DRY. NO BLEEDING, OOZING NOTED TO SITE. INSTRUCTED PT ON IMPORTANCE OF KEEPING RIGHT LEG STRAIGHT AND NOT MOVING LEG OR LIFTING HEAD UP OFF OF BED. BOTH PT AND VERBALIZED UNDERSTANDING.
--- NOTE | 2019-11-30 13:43 | NUR ---
DISCHARGE ORAL AND WRITTEN DISCHARGE INSTRUCTIONS GIVEN TO PT AND PTS . INSTRUCTED ON IMPORTANCE OF FOLLOWING DR. PRIDE INSTRUCTIONS. BOTH VERBALIZED UNDERSTANDING.
== END 2019-11-30 14:36 | disposition home or self-care (01) ==
LOC: DAH 05:53
PROVIDERS: ATTEND Internal Medicine Cardiovascular Disease
DX: I70.212 Atherosclerosis of native arteries of extremities with intermittent claudication, left leg (principal); I10 Essential (primary) hypertension; E78.5 Hyperlipidemia, unspecified; E11.9 Type 2 diabetes mellitus without complications; I69.351 Hemiplegia and hemiparesis following cerebral infarction affecting right dominant side; Z90.710 Acquired absence of both cervix and uterus; Z98.890 Other specified postprocedural states; Z79.82 Long term (current) use of aspirin; Z79.899 Other long term (current) drug therapy; Z95.1 Presence of aortocoronary bypass graft; Z83.3 Family history of diabetes mellitus; Z82.49 Family history of ischemic heart disease and other diseases of the circulatory system; Z79.01 Long term (current) use of anticoagulants
CPT/HCPCS: 36415; 37225; 37228; 71045; 75625; 75710; 80048; 81001; 82948 ×2; 85025; 85610; 85730; 93005; A4215; A4216; A4221; A4222; A4223 ×3; A4606; A4663; C1760; C1769 ×3; C1884 ×2; C1887; C1893; C1894 ×2; C2623 ×3; J0360; J1644 ×3; J2250; J3010; J3490 ×2; J7030; Q9967; 99156; 99157

== ENCOUNTER 2020-03-29 06:03 | Day surgery (SDC) | payer OTHER ==
[2020-03-29] VITALS (15 sets, daily range): BP systolic 77–143; BP diastolic 38–72
[~2020-03-29 06:03] MED LIST changes: +LOSA100T58 PO; -LOSA50TA64 PO; -SODIUM CHLORIDE 0.9% 500ML 500 ML IV SCH
--- NOTE | 2020-03-29 06:20 | NUR ---
PRE-PROCEDURE RECEIVED TO DAY 15 FOR SCHEDULED RLE ANGIOGRAM. AWAKE IN NO ACUTE DISTRESS. GAIT STEADY. CONNECTED TO CONTINUOUS CARDIOPULMONARY MONITORING. ORIENTED TO ROOM. DENIES PAIN. SIDE RAILS UP X2, BED IN LOWEST POSITION, AND CALL LIGHT WITHIN REACH.
[2020-03-29 06:26] LABS: BASOPHILS % (AUTO) 0.3 % (0.0-5.0); EOSINOPHILS % (AUTO) 1.4 % (0.0-8.0); HEMATOCRIT 38.6 % (36-48); MEAN CORPUSCULAR HEMOGLOBIN 26.7 pg (27.0-33.0); MEAN CORPUSCULAR HGB CONC 31.3 g/dL (32.0-36.0); MEAN CORPUSCULAR VOLUME 85.2 fL (79-99); MONOCYTES % (AUTO) 8.8 % (3.0-13.0); PLATELET COUNT (AUTO) 244 K/uL (130-400); RED BLOOD CELL COUNT(AUTO) 4.53 MIL/uL (4.00-5.50); WHITE BLOOD COUNT (AUTO) 5.9 K/uL (4.8-10.8)
[2020-03-29] MEDS ORDERED: SODIUM CHLORIDE 0.9% 1000ML 1,000 ML IV ONE (06:26)
[2020-03-29 06:35] LABS: APPEARANCE,URINE Clear (CLEAR); BILIRUBIN,URINE Negative (NEGATIVE); COLOR,URINE Yellow (YELLOW); GLUCOSE, URINE (UA) Negative (NEGATIVE); KETONES,URINE Negative (NEGATIVE); LEUKOCYTE ESTERASE ,URINE Negative (NEGATIVE); NITRATE,URINE Negative (NEGATIVE); OCCULT BLOOD,URINE Negative (NEGATIVE); PH,URINE 6.5 (5.0-8.0); PROTEIN,URINE Negative (NEGATIVE); UROBILINOGEN,URINE 0.2 mg/dL (0.2-1.0)
[2020-03-29 06:45] LABS: CREATININE 1.1 mg/dL (0.5-1.5); POTASSIUM 3.3 mmol/L (3.5-5.1)
[2020-03-29 06:51] LABS: INR 0.97 (0.85-1.15); PARTIAL THROMBOPLASTIN TIME 28.5 SEC (26.3-35.5); PROTHROMBIN TIME 10.5 SEC (9.6-11.6)
[2020-03-29] MEDS ORDERED: HEPARIN SODIUM 1000UNIT/ML 10ML VIAL ONE (07:27)
[2020-03-29] MEDS ORDERED: FENTANYL CITRATE PF 50 MCG/1 ML 2ML VIAL ONE (07:28)
[2020-03-29] MEDS ORDERED: LIDOCAINE HCL 2% 20ML ONE (07:28)
[2020-03-29] MEDS ORDERED: IODIXANOL 320 MG/ML 100 ML VIAL ONE ×2 (07:28→07:53)
[2020-03-29] MEDS ORDERED: NITROGLYCERIN 2 MG/VIAL VIAL IV ONE (07:28)
[2020-03-29] MEDS ORDERED: MIDAZOLAM HCL 1 MG/ML 2ML VIAL ONE ×2 (07:28→07:56)
--- NOTE | 2020-03-29 08:00 | NUR ---
LAB RESULTS SANCHEZ LOJA NOTIFIED OF CREAT. 1.6. NO NEW ORDERS RECEIVED.
[2020-03-29] MEDS ORDERED: CLOPIDOGREL BISULFATE 300 MG TAB ONE (08:12)
[2020-03-29] MEDS ORDERED: SODIUM CHLORIDE 0.9% 1000ML 1,000 ML IV SCH (09:43)
[2020-03-29] MEDS ORDERED: DEXTROSE 50%-WATER 50 ML DISP.SYRIN IV PRN (09:45)
[2020-03-29] MEDS ORDERED: GLUCAGON 1MG KIT 1 MG ML IM PRN (09:45)
--- NOTE | 2020-03-29 10:27 | NUR ---
POST-PROCEDURE RECEIVED FROM REAL ESTATE ATTORNEY VIA BED S/P RLE ANGIOGRAM WITH ATHERECTOMY. DROWSY, BUT WAKES UP TO WHEN NAME IS CALLED. CONNECTED TO CONTINUOUS CARDIOPULMONARY MONITORING. SIDE RAILS UP X2, BED IN LOWEST POSITION, AND CALL LIGHT W/IN REACH. EDUCATED PT ON KEEPING LEFT LEG STRAIGHT AND HEAD FLAT. PT VERBALIZED UNDERSTANDING. CATH SITE TO LEFT GROIN WITH APPROX. 3IN BRUISE NOTED LEFT GROIN, SITE W/ MYNX DRESSING CLEAN, DRY, AND INTACT, SITE SOFT, NON-TENDER.
--- NOTE | 2020-03-29 10:27 | NUR ---
B/P B/P 77/38. PT WAKES UP ORIENTED X3. NURSE INSTRUCTOR BRISK. DR. SHANNEN CATES. IVF'S INCREASED.
--- NOTE | 2020-03-29 10:40 | NUR ---
RECHECK B/P B/P 99/53. IVF'S AT 100ML/HR.
--- NOTE | 2020-03-29 10:43 | NUR ---
RETURN PHONE CALL SPOKE WITH DR. PRIDE NOTIFIED OF B/P 77/38 UPON ARRIVAL FROM COMMUNICATIONS EQUIPMENT SUPERVISOR AND CURRENT B/P 99/53. NO NEW ORDERS RECEIVED.
--- NOTE | 2020-03-29 11:37 | NUR ---
HYPOTENSION B/P 66/35. SPOKE WITH DR. PRIDE ORDER RECEIVED FOR NS BOLUS 500ML AND LLE ARTERIAL DOPPLER STAT. NS BOLUS INITIATED.
--- NOTE | 2020-03-29 11:40 | NUR ---
RECHECK B/P B/P 93/48.
--- NOTE | 2020-03-29 12:00 | NUR ---
RECEIVED REPORT FROM ОЛЬГА PEREZ RN , PT STABLE HOWEVER BLEEDIN FROM PUNCTURE SITE NOTED.WILL CONT TO MONITOR PT. ULTRASOUND BEING DONE NOW.
--- NOTE | 2020-03-29 12:00 | NUR ---
REPORT BEDSIDE REPORT GIVEN TO SHEILA FRYE USING SBAR. VERBALIZED UNDERSTANDING. CATH SITE CHECKED, 3IN AREA OF BRUISING NOTED ( NO INCREASE IN SIZE), MYNX DRESSING DRY AND INTACT WITH SCANT SANGINOUS DRAINAGE; SITE SOFT, NON-TENDER. DENIES PAIN.
== END 2020-03-29 15:05 | disposition home or self-care (01) ==
LOC: DAH 06:03
PROVIDERS: ATTEND Internal Medicine Cardiovascular Disease
DX: I70.211 Atherosclerosis of native arteries of extremities with intermittent claudication, right leg (principal); M79.661 Pain in right lower leg; I10 Essential (primary) hypertension; E78.5 Hyperlipidemia, unspecified; E11.9 Type 2 diabetes mellitus without complications; I25.10 Atherosclerotic heart disease of native coronary artery without angina pectoris; Z79.01 Long term (current) use of anticoagulants; Z95.1 Presence of aortocoronary bypass graft; Z90.89 Acquired absence of other organs; Z90.710 Acquired absence of both cervix and uterus; I21.9 Acute myocardial infarction, unspecified
CPT/HCPCS: 36415; 37225; 37228; 71045; 75630; 76882; 80048; 81003; 82948; 85025; 85347 ×2; 85610; 85730; 93005; A4215; A4216; A4221; A4222; A4223 ×3; A4606; A4663; C1725; C1760; C1769 ×3; C1884; C1893; C1894 ×2; C2623 ×2; J1644 ×3; J2250; J3010; J3490 ×2; J7030; Q9967 ×2; 99156; 99157

== ENCOUNTER → 2020-04-11 | Outpatient (CLI) | payer OTHER ==
[~2020-04-11] MED LIST changes: +IOHEXOL 350 MG/ML 100ML INFUS..BTL IV ONE; +IOHEXOL-350 50ML VIAL IV ONE
== END | disposition home or self-care (01) ==
LOC: RAH 10:21
PROVIDERS: ATTEND Internal Medicine Cardiovascular Disease
DX: I73.89 Other specified peripheral vascular diseases (principal); I70.0 Atherosclerosis of aorta; Z90.710 Acquired absence of both cervix and uterus; J98.11 Atelectasis
CPT/HCPCS: 75635; Q9967 ×2

== ENCOUNTER → 2020-07-18 | Outpatient (CLI) | payer OTHER ==
[~2020-07-18] MED LIST changes: -IOHEXOL 350 MG/ML 100ML INFUS..BTL IV ONE; -IOHEXOL-350 50ML VIAL IV ONE
== END | disposition home or self-care (01) ==
LOC: SHCH 10:58
PROVIDERS: ATTEND Internal Medicine Cardiovascular Disease
DX: I65.23 Occlusion and stenosis of bilateral carotid arteries (principal); I25.5 Ischemic cardiomyopathy; I10 Essential (primary) hypertension
CPT/HCPCS: 93880

== ENCOUNTER 2020-10-21 15:10 | Inpatient (IN) | payer OTHER ==
[~2020-10-21] VITALS: Ht 152.4 cm; Wt 46.5 kg
[~2020-10-21 15:10] MED LIST changes: -ALEN70TA10 PO; +ALEN70TA69 PO
[2020-10-21] MEDS ORDERED: FUROSEMIDE 10 MG/ML 4ML VIAL ONE (17:11)
[2020-10-21 17:37] LABS: BASOPHILS % (AUTO) 0.3 % (0.0-5.0); EOSINOPHILS % (AUTO) 0.2 % (0.0-8.0); HEMATOCRIT 38.5 % (36-48); LYMPHOCYTES % (AUTO) 8.6 % (21.0-51.0); MEAN CORPUSCULAR HGB CONC 31.4 g/dL (32.0-36.0); MEAN CORPUSCULAR VOLUME 76.2 fL (79-99); MONOCYTES % (AUTO) 6.2 % (3.0-13.0); PLATELET COUNT (AUTO) 544 K/uL (130-400); RED BLOOD CELL COUNT(AUTO) 5.05 MIL/uL (4.00-5.50); RED CELL DISTRIBUTION WIDTH 15.4 % (11.0-15.5); WHITE BLOOD COUNT (AUTO) 11.7 K/uL (4.8-10.8)
[2020-10-21 17:43] LABS: ALBUMIN 2.9 g/dL (3.5-5.0); BILIRUBIN,TOTAL 0.9 mg/dL (0.2-1.0); POTASSIUM 3.6 mmol/L (3.5-5.1); TOTAL PROTEIN, SERUM 7.5 g/dL (6.0-8.3)
[2020-10-21] MEDS ORDERED: LIDOCAINE HCL-MPF 1% 2ML VIAL IJ PRN (18:00)
[2020-10-21] MEDS ORDERED: POTASSIUM CHLORIDE 20 MEQ ERTAB PO PRN ×2 (18:00→20:30)
[2020-10-21] MEDS ORDERED: ACETAMINOPHEN 325 MG TAB PO PRN (18:00)
[2020-10-21] MEDS ORDERED: POTASSIUM CHLORIDE 20MEQ/100ML 100 ML IV PRN ×2 (18:00→20:30)
[2020-10-21] MEDS ORDERED: MILRINONE-D5W 20 MG/100 ML 100 ML IV ONE (18:00)
[2020-10-21] MEDS ORDERED: CLONIDINE HCL 0.1 MG TABLET PO PRN (18:00)
[2020-10-21] MEDS: FUROSEMIDE 10 MG/ML 4ML VIAL IVP SCH (18:00)
[2020-10-21] MEDS ORDERED: SODIUM CHLORIDE 0.9% 10 ML VIAL IVP PRN (18:00)
[2020-10-21] MEDS ORDERED: POTASSIUM CHLORIDE 10% ELIXIR 20 MEQ/15 ML UDCUP PO PRN (18:00)
[2020-10-21 18:05] LABS: B-TYPE NATRIURETIC PEPTIDE 1110 pg/mL (0-100)
[2020-10-21] MEDS ORDERED: MORPHINE SULFATE 2 MG/ML 1ML SYG IV PRN (20:00)
[2020-10-21] MEDS ORDERED: LIDOCAINE HCL-MPF 1% 2ML VIAL IV PRN (20:30)
[2020-10-21 20:40] VITALS: BP 138/72
[2020-10-21] MEDS: INSULIN HUMULIN R 100 UNIT/ML 3ML SQ SCH (21:00)
[2020-10-22] VITALS (12 sets, daily range): BP systolic 88–123; BP diastolic 50–98
[2020-10-22] MEDS: FUROSEMIDE 10 MG/ML 4ML VIAL IVP SCH ×2 (01:09→09:39)
[2020-10-22 05:33] LABS: HEMOGLOBIN A1C 7.6 % (4.0-6.0)
[2020-10-22] MEDS: INSULIN HUMULIN R 100 UNIT/ML 3ML SQ SCH ×4 (06:05→21:04)
[2020-10-22] MEDS: MILRINONE-D5W 20 MG/100 ML 100 ML IV SCH (06:36)
--- NOTE | 2020-10-22 08:00 | NUR ---
AM ASSESSMENT PT LAYING IN BED. A/O X 3. PT ASSISTED UP TO RESTRM. UPON RETURNING TO BED. PT SOB. PT PLACED ON O2 NC @ 2L. DENIES CHEST PAIN OR DISCOMFORT. DENIES PALPITATIONS. TELE: ST. DENIES N/V AND/OR DIARRHEA. PT TO HAVE RT THORACENTESIS TODAY. MILRINONE GTT INFUSING. REINFORCED FOR PT TO CALL FOR ASSISTANCE. BEDSIDE COMMODE MADE AVAIL. CALL TIMOTHY W/IN REACH.
[2020-10-22 08:50] LABS: INR 1.12 (0.85-1.15); PROTHROMBIN TIME 11.9 SEC (9.6-11.6)
[2020-10-22 08:51] LABS: PARTIAL THROMBOPLASTIN TIME 28.3 SEC (26.3-35.5)
[2020-10-22 10:18] LABS: CREATININE 1.1 mg/dL (0.5-1.5)
[2020-10-22] MEDS: POTASSIUM CHLORIDE 10% ELIXIR 20 MEQ/15 ML UDCUP PO PRN ×3 (11:59→16:17)
[2020-10-22] MEDS ORDERED: MAGN400T53 PO (12:14)
[2020-10-22] MEDS ORDERED: METO-408 PO (12:14)
[2020-10-22] MEDS ORDERED: POTA20TA12 PO (12:14)
[2020-10-22] MEDS ORDERED: STEGLATRO PO (12:14)
[2020-10-22] MEDS ORDERED: SPIR100T PO (12:14)
[2020-10-22] MEDS ORDERED: METO10TA8 PO (12:14)
[2020-10-22] MEDS ORDERED: SPIRONOLACTONE 25 MG TAB PO SCH (13:30)
[2020-10-22] MEDS ORDERED: METOPROLOL SUCCINATE 50 MG TAB.SR.24H PO SCH (13:30)
[2020-10-22] MEDS ORDERED: LOSARTAN 100 MG TABLET PO SCH (13:30)
[2020-10-22] MEDS ORDERED: CLOPIDOGREL BISULFATE 75 MG TAB PO SCH (13:30)
--- NOTE | 2020-10-22 15:40 | NUR ---
STATUS PT TAKEN TO IR FOR RT THORA VIA BED. TELE ANGELICA REMOVED. Addendum: 10/22/20 at 1847 by SHORTY ELLIS RN RN CORRECTION: PT TAKEN TO IR FOR RT THORA VIA WC W/O2 FOR TRANSPORT.
--- NOTE | 2020-10-22 15:45 | NUR ---
US GUIDED RIGHT THORACENTESIS PROCEDURE PERFORMED BY DR. AARON. PUNCTURE SITE RIGHT POSTERIOR BACK AND PATIENT TOLERATED PROCEDURE WITH NOTED C/O CHEST DISCOMFORT AND BP 78/49. TOTAL REMOVED 700 MILLILITERS OF CLOUDY YELLOW FLUID. END OF PROCEDURE AT 1555. CATHETER REMOVED AND DRESSING APPLIED. NO BLEEDING NOTED. POST CHEST X-RAY TAKEN AND READ BY DR. AARON. NO PNEUMOTHORAX SEEN. REPORT GIVEN TO SHEILA WILKES AND PATIENT TRANSPORTED TO [facility] VIA BED. PT STABLE, AAO X 3 WITH NO C/O PAIN.
[2020-10-22] MEDS ORDERED: METOPROLOL SUCCINATE 50 MG TAB.SR.24H PO ONE (16:23)
--- NOTE | 2020-10-22 16:30 | NUR ---
STATUS PT BACK FROM IR VIA WC S/P RT THORA, 700 ML REMOVED. L OSORIO WOOD MODEL BUILDER NOTIFIED ORDERS NEEDED FOR PLEURAL FLUID SENT TO PATHOLOGY. PT A/O X 3. NO SOB. NO DISTRESS NOTED. O2 NC @ 2L. DENIES PAIN OR DISCOMFORT. DENIES PUNCTURE SITE PAIN, DSG DRY & INTACT. DENIES N/V. MILRINONE GTT INFUSING @ 5.4 ML/HR. V/S PER V/S SPREADSHEET.
[2020-10-22 16:57] LABS: CREATININE 1.3 mg/dL (0.5-1.5); POTASSIUM 5.1 mmol/L (3.5-5.1)
[2020-10-22] MEDS: FUROSEMIDE 10 MG/ML 4ML VIAL IV SCH (17:00)
[2020-10-23 01:21] LABS: APPEARANCE BODY FLUID SLIGHTLY CLOUDY (CLEAR); COLOR,BODY FLUID YELLOW (LT YELLOW); SPECIMENTYPE,BODY FLUID PLEURAL; TOTAL VOLUME,BODY FLUID 700 mL
[2020-10-23 01:34] LABS: BODY FLUID WBC 1446 /cu. mm.
[2020-10-23 01:35] LABS: BODY FLUID RBC 1956 /cu. mm.
[2020-10-23 01:36] LABS: BF LYMPHOCYTE 65 %; BF MESOTHELIAL 3 %; BF MONOCYTE 10 %
[2020-10-23] MEDS: MILRINONE-D5W 20 MG/100 ML 100 ML IV SCH (04:14)
[2020-10-23 04:45] VITALS: BP 100/56
[2020-10-23] MEDS: FUROSEMIDE 10 MG/ML 4ML VIAL IV SCH (04:45)
[2020-10-23] MEDS: INSULIN HUMULIN R 100 UNIT/ML 3ML SQ SCH ×4 (05:19→21:25)
[2020-10-23 06:16] LABS: TOTAL PROTEIN, SERUM 6.4 g/dL (6.0-8.3)
[2020-10-23 08:13] VITALS: BP 115/81
--- NOTE | 2020-10-23 08:15 | NUR ---
AM ASSESSMENT PT LAYING IN BED, RESTING. A/O X 3. SOB ON EXERTION. NO DISTRESS NOTED. O2 NC @ 2L. DENIES CHEST PAIN OR DISCOMFORT. DENIES PALPITATIONS. TELE: STACH. DENIES N/V AND/OR DIARRHEA. BR W/BRP. BEDSIDE COMMODE. UP W/ASSISTANCE. INSTRUCTED TO CALL FOR ASSISTANCE. CALL TIMOTHY W/IN REACH. MILRINONE GTT INFUSING @ 0.375 MCG/KG/MIN.
[2020-10-23 08:20] LABS: CREATININE 1.1 mg/dL (0.5-1.5); POTASSIUM 4.2 mmol/L (3.5-5.1)
[2020-10-23] MEDS: CLOPIDOGREL BISULFATE 75 MG TAB PO SCH (08:40)
[2020-10-23] MEDS: METOPROLOL SUCCINATE 50 MG TAB.SR.24H PO SCH (08:41)
[2020-10-23] MEDS: POTASSIUM CHLORIDE 20 MEQ ERTAB PO SCH (08:46)
[2020-10-23] MEDS: ATORVASTATIN CALCIUM 40 MG TABLET PO SCH (08:47)
[2020-10-23] MEDS: LOSARTAN 100 MG TABLET PO SCH (09:00)
[2020-10-23] MEDS: SPIRONOLACTONE 25 MG TAB PO SCH (09:00)
--- NOTE | 2020-10-23 09:04 | NUR ---
MD VISIT I CRISTO BRADFORD IN TO SEE PT. UPDATED ON PT'S STATUS & PLAN OF CARE. ORDER TO DC MILRINONE GTT RCVD & ENTERED. MILRINONE GTT DC'D @ THIS TIME.
[2020-10-23 11:28] VITALS: BP 100/67
[2020-10-23 14:07] LABS: CRP QUANTITATIVE 93.5 mg/L (0.00-9.0)
[2020-10-23] MEDS ORDERED: IOHEXOL-350 50ML VIAL IV ONE (15:57)
[2020-10-23 16:00] VITALS: BP 100/56
--- NOTE | 2020-10-23 16:52 | NUR ---
DC PLAN VISITED WITH PATIENT. PATIENT LIVES WITH X . INDEPENDENT ABLE TO PERFORM ADL'S. PATIENT HAS NO SERVICES OR DME'S. FEELS SAFE TO RETURN HOME. Addendum: 10/23/20 at 1653 by AYAKA MORATAYA RN CM Amended: Links added.
[2020-10-23] MEDS: FUROSEMIDE 20 MG TABLET PO SCH (17:00)
--- NOTE | 2020-10-23 17:21 | NUR ---
MD TRENT GOLD DENTAL TECHNICIAN METAL NOTIFIED OF CT CHEST RESULTS, BILATERAL PULMONARY EMBOLI. ORDERS TO BE ENTERED IN [employer] BY GURMEET.
--- NOTE | 2020-10-23 18:10 | NUR ---
MD NOTIFICATION DR TILLMAN NOTIFIED OF [facility] BY DR HALL RESULTS. NO NEW ORDERS RCVD. OF TO DC PT HOME TMRW FROM DR TILLMAN'S STANDPOINT. PRESCRIPTIONS FOR PT ALREADY CALLED IN TO [facility]. Addendum: 10/23/20 at 1923 by SHORTY ELLIS RN RN ERROR ENTRY. NARRATIVE ENTERED ON WRONG PT.
--- NOTE | 2020-10-23 18:18 | NUR ---
MD TRENT GOLD NOTIFIED PT POS FOR BILATERAL DVT. ORDERS TO BE ENTERED IN [facility] BY GURMEET PADGETT. PT TO BE STARTED ON STRICT BEDREST. NO TEDS OR SCDs.
--- NOTE | 2020-10-23 18:22 | NUR ---
PT NOTIFICATION PT INFORMED OF CT CHEST RESULTS & BILATERAL LE US. QUESTIONS ENCOURAGED & CLARIFED. PT UPDATED ON CURRENT PLAN OF CARE. REINFORCED IMPORTANCE OF MAINTAINING STRICT BEDREST. BEDSIDE COMMODE PLACED IN PT'S RESTRM.
[2020-10-23 20:08] VITALS: BP 117/72
[2020-10-23] MEDS: ENOXAPARIN SODIUM 60 MG/0.6 ML SQ SCH (22:09)
[2020-10-24] VITALS (13 sets, daily range): BP systolic 95–130; BP diastolic 56–86
[2020-10-24 05:29] LABS: MEAN CORPUSCULAR HEMOGLOBIN 24.1 pg (27.0-33.0); MEAN CORPUSCULAR VOLUME 75.4 fL (79-99); RED BLOOD CELL COUNT(AUTO) 4.64 MIL/uL (4.00-5.50); RED CELL DISTRIBUTION WIDTH 15.2 % (11.0-15.5); WHITE BLOOD COUNT (AUTO) 10.2 K/uL (4.8-10.8)
[2020-10-24 05:48] LABS: INR 1.08 (0.85-1.15); PROTHROMBIN TIME 11.5 SEC (9.6-11.6)
[2020-10-24 05:53] LABS: POTASSIUM 4.2 mmol/L (3.5-5.1)
[2020-10-24] MEDS: INSULIN HUMULIN R 100 UNIT/ML 3ML SQ SCH ×4 (07:30→20:27)
--- NOTE | 2020-10-24 07:45 | NUR ---
AM ASSESSMENT PT LAYING IN BED, RESTING. STRICT BEDREST. A/O X 3. SON. ON EXERTION. NO DISTRESS NOTED. DENIES CHEST PAIN OR DISCOMFORT. DENIES PALPITATIONS. TELE: SR/JAKUB. DENIES N/V AND/OR DIARRHEA. NPO STATUS REINFORCED. PT TO HAVE IVC FILTER I=PLACEMENT TODAY BY IR. REINFORCED BEDREST. INSTRUCTED TO CALL FOR ASSISTANCE. CALL TIMOTHY W/IN REACH.
[2020-10-24] MEDS: CLOPIDOGREL BISULFATE 75 MG TAB PO SCH (09:00)
[2020-10-24] MEDS: ENOXAPARIN SODIUM 60 MG/0.6 ML SQ SCH ×2 (09:00→20:16)
[2020-10-24] MEDS: SPIRONOLACTONE 25 MG TAB PO SCH (09:00)
[2020-10-24] MEDS: ATORVASTATIN CALCIUM 40 MG TABLET PO SCH (09:00)
[2020-10-24] MEDS: LOSARTAN 100 MG TABLET PO SCH (09:00)
[2020-10-24] MEDS: FUROSEMIDE 20 MG TABLET PO SCH ×2 (09:00→17:23)
[2020-10-24] MEDS: POTASSIUM CHLORIDE 20 MEQ ERTAB PO SCH (09:00)
--- NOTE | 2020-10-24 11:01 | NUR ---
FAMILY NOTIFICATION CALL RCVD FROM PT'S SPOUSE, POLO. Lola GOLD NP SPOKE W/PT'S SPOUSE OVER TELEPHONE @ THIS TIME. PT'S SPOUSE UPDATED ON PT 'S STATUS & CURRENT PLAN OF CARE BY Lola GOLD NP.
--- NOTE | 2020-10-24 15:40 | NUR ---
STATUS PT TAKEN TO HANDLE FINISHER VIA BED FOR IV FILTER PLACEMENT. TELE ANGELICA REMOVED.
[2020-10-24] MEDS ORDERED: IODIXANOL 320 MG/ML 100 ML VIAL ONE (15:53)
[2020-10-24] MEDS ORDERED: LIDOCAINE HCL 1% MDV 50ML VIAL ONE (15:53)
--- NOTE | 2020-10-24 16:39 | NUR ---
STATUS PT RCVD FROM SHEEP BONER VIA BED. S/P IVC FILTER PLCT. RT JUGULAR DSG DRY & INTACT. NO DRAINAGE NOTED. PT DENIES PAIN OR DISCOMFORT @ THIS TIME. CALL TIMOTHY W/IN REACH.
--- NOTE | 2020-10-24 16:50 | NUR ---
FAM UPDATE PT'S SPOUSE UPDATED ON PT'S STATUS POST IVC FILTER PLACEMENT.
[2020-10-24] MEDS: METOPROLOL SUCCINATE 50 MG TAB.SR.24H PO SCH (17:23)
--- NOTE | 2020-10-24 19:20 | NUR ---
Pt LAYING IN BED, NO DISTRESS, DENIES PAIN. DRESSING SITE DRY AND INTACT.
[2020-10-25] VITALS (8 sets, daily range): BP systolic 78–118; BP diastolic 52–75
[2020-10-25 04:10] LABS: ALPHA-1-ANTITRYPSIN 269 mg/dL (101-187)
[2020-10-25 05:34] LABS: HEMATOCRIT 37.4 % (36-48); MEAN CORPUSCULAR HEMOGLOBIN 24.3 pg (27.0-33.0); MEAN CORPUSCULAR HGB CONC 32.6 g/dL (32.0-36.0); MEAN CORPUSCULAR VOLUME 74.4 fL (79-99); RED BLOOD CELL COUNT(AUTO) 5.03 MIL/uL (4.00-5.50); RED CELL DISTRIBUTION WIDTH 15.4 % (11.0-15.5); WHITE BLOOD COUNT (AUTO) 10.3 K/uL (4.8-10.8)
[2020-10-25 06:04] LABS: CREATININE 0.8 mg/dL (0.5-1.5); POTASSIUM 4.2 mmol/L (3.5-5.1)
[2020-10-25 07:17] LABS: ABG BASE EXCESS -1.3 mmol/L (-2.0-3.0); ABG HCO3 21.7 mmol/L (21.0-28.0); ABG OXYGEN SATURATION 94.4 % (95.0-99.0); ABG PCO2 32 mmHg (32-45)
[2020-10-25] MEDS: INSULIN HUMULIN R 100 UNIT/ML 3ML SQ SCH ×4 (07:30→22:59)
[2020-10-25] MEDS: CLOPIDOGREL BISULFATE 75 MG TAB PO SCH (09:08)
[2020-10-25] MEDS: SPIRONOLACTONE 25 MG TAB PO SCH (09:08)
[2020-10-25] MEDS: LOSARTAN 100 MG TABLET PO SCH (09:08)
[2020-10-25] MEDS: ATORVASTATIN CALCIUM 40 MG TABLET PO SCH (09:08)
[2020-10-25] MEDS: POTASSIUM CHLORIDE 20 MEQ ERTAB PO SCH (09:08)
[2020-10-25] MEDS: FUROSEMIDE 20 MG TABLET PO SCH ×2 (09:09→17:00)
[2020-10-25] MEDS: METOPROLOL SUCCINATE 50 MG TAB.SR.24H PO SCH (09:09)
[2020-10-25] MEDS: ENOXAPARIN SODIUM 60 MG/0.6 ML SQ SCH (09:11)
--- NOTE | 2020-10-25 10:45 | NUR ---
HEMATOLOGY CONSULT CALLED IN TO DR STEWART; SPOKE TO BRONSON.
--- NOTE | 2020-10-25 18:00 | NUR ---
CALL PLACED TO BENCHMARK TO MAKE AWARE OF BP 80 TO 90 RANGE, PER ZEE PADGETT, STATES TO CONTINUE TO MONITOR PT, PT ASYMPTOMATIC.
[2020-10-25] MEDS ORDERED: ENOXAPARIN SODIUM 60 MG/0.6 ML SQ SCH (21:00)
[2020-10-26 04:00] VITALS: BP 122/79
[2020-10-26 05:33] LABS: HEMATOCRIT 38.4 % (36-48); MEAN CORPUSCULAR HEMOGLOBIN 23.6 pg (27.0-33.0); MEAN CORPUSCULAR HGB CONC 31.3 g/dL (32.0-36.0); MEAN CORPUSCULAR VOLUME 75.6 fL (79-99); RED BLOOD CELL COUNT(AUTO) 5.08 MIL/uL (4.00-5.50); RED CELL DISTRIBUTION WIDTH 15.4 % (11.0-15.5); WHITE BLOOD COUNT (AUTO) 13.6 K/uL (4.8-10.8)
[2020-10-26 05:47] LABS: INR 1.05 (0.85-1.15); PROTHROMBIN TIME 11.2 SEC (9.6-11.6)
[2020-10-26 05:48] LABS: PARTIAL THROMBOPLASTIN TIME 34.8 SEC (26.3-35.5)
[2020-10-26] MEDS: INSULIN HUMULIN R 100 UNIT/ML 3ML SQ SCH ×4 (07:30→21:07)
[2020-10-26 08:05] VITALS: BP 92/60
[2020-10-26] MEDS: FUROSEMIDE 20 MG TABLET PO SCH ×2 (09:00→17:00)
[2020-10-26] MEDS: METOPROLOL SUCCINATE 50 MG TAB.SR.24H PO SCH (09:00)
[2020-10-26] MEDS: APIXABAN 5 MG TABLET PO SCH ×2 (09:00→20:59)
[2020-10-26 11:36] VITALS: BP 91/65
[2020-10-26] MEDS ORDERED: LIDOCAINE HCL-MPF 2% 5ML VIAL IV ONE (14:00)
[2020-10-26 16:00] VITALS: BP 94/61
[2020-10-26 18:17] VITALS: BP 106/60
[2020-10-26] MEDS: SPIRONOLACTONE 25 MG TAB PO SCH (18:29)
[2020-10-26] MEDS: POTASSIUM CHLORIDE 20 MEQ ERTAB PO SCH (18:29)
[2020-10-26] MEDS: ASPIRIN 81MG TAB.CHEW PO SCH (18:29)
[2020-10-26] MEDS: ATORVASTATIN CALCIUM 40 MG TABLET PO SCH (18:29)
[2020-10-26 20:00] VITALS: BP 103/61
[2020-10-26] MEDS: LOSARTAN 50 MG TABLET PO SCH (20:59)
[2020-10-26 22:22] LABS: SPECIMENTYPE,BODY FLUID PLEURAL
[2020-10-26 22:23] LABS: APPEARANCE BODY FLUID CLOUDY (CLEAR); COLOR,BODY FLUID DARK YELLOW (LT YELLOW); TOTAL VOLUME,BODY FLUID 900 mL
[2020-10-26 22:24] LABS: BODY FLUID RBC 2317 /cu. mm.; BODY FLUID WBC 274 /cu. mm.
[2020-10-26 22:51] LABS: BF LYMPHOCYTE 9 %; BF MONOCYTE 1 %
[2020-10-27] VITALS: BP 115/56
[2020-10-27] MEDS: ZOSYN 3.375GM+NS 50ML 50 ML IV SCH ×2 (01:15→22:13)
[2020-10-27 04:00] VITALS: BP 97/72
[2020-10-27 05:26] LABS: BASOPHILS % (AUTO) 0.4 % (0.0-5.0); EOSINOPHILS % (AUTO) 1.3 % (0.0-8.0); HEMATOCRIT 35.2 % (36-48); MEAN CORPUSCULAR HEMOGLOBIN 23.8 pg (27.0-33.0); MEAN CORPUSCULAR HGB CONC 31.3 g/dL (32.0-36.0); MONOCYTES % (AUTO) 7.8 % (3.0-13.0); NEUTROPHILS % (AUTO) 80.8 % (40.0-77.0); PLATELET COUNT (AUTO) 470 K/uL (130-400); RED BLOOD CELL COUNT(AUTO) 4.63 MIL/uL (4.00-5.50); RED CELL DISTRIBUTION WIDTH 15.2 % (11.0-15.5)
[2020-10-27 05:45] LABS: ALBUMIN 2.3 g/dL (3.5-5.0); BILIRUBIN,TOTAL 0.6 mg/dL (0.2-1.0); CREATININE 0.9 mg/dL (0.5-1.5); POTASSIUM 4.5 mmol/L (3.5-5.1); TOTAL PROTEIN, SERUM 6.2 g/dL (6.0-8.3)
[2020-10-27] MEDS: INSULIN HUMULIN R 100 UNIT/ML 3ML SQ SCH ×4 (06:56→22:19)
--- NOTE | 2020-10-27 07:29 | NUR ---
PATIENT UPDATE PT S/P RT THORACENTESIS FROM THE AM SHIFT, 900 CC'S DRAINED FR THE RT CHEST, PLEURAL FLUID SENT TO LAB FOR CYTOLOGY PER ORDER. MEDICATED ONCE WITH TYLENOL FOR GEN DISCOMFORT WHICH AFFORDED RELIEF. BLOOD PRESSURE AT 0400 IN THE 90'S MMHG SYSTOLIC WITH MAP GREATER THAN 65 MMHG. BLOOD SUGAR THIS AM AT 62 AGAIN AFTER HE WAS COVERED PER S/S PROTOCOL LAST NIGHT. ORANGE JUICE AND APPLE SAUCE GIVEN, RECHECK AT 129. PT STATED THAT ALL SHE ATE WAS THE DESSERT SENT BY [employer]. MIGHT NEED TO STOP THE SLIDING SCALE AT HS WITH THIS HAPPENING FOR THE LAST 2 DAYS, WILL LET THE MD AWARE. PENDING CM EVEALUATION FOR NEED FOR HOME O2 ONCE THE PT GETS DISCHARGED TO HOME.
[2020-10-27 07:56] VITALS: BP 93/61
[2020-10-27] MEDS: ATORVASTATIN CALCIUM 40 MG TABLET PO SCH (09:26)
[2020-10-27] MEDS: POTASSIUM CHLORIDE 20 MEQ ERTAB PO SCH (09:26)
[2020-10-27] MEDS: FUROSEMIDE 20 MG TABLET PO SCH ×2 (09:26→17:22)
[2020-10-27] MEDS: ASPIRIN 81MG TAB.CHEW PO SCH (09:26)
[2020-10-27] MEDS: APIXABAN 5 MG TABLET PO SCH ×2 (09:27→22:12)
[2020-10-27] MEDS: METOPROLOL SUCCINATE 50 MG TAB.SR.24H PO SCH (09:27)
[2020-10-27 11:14] VITALS: BP 91/63
--- NOTE | 2020-10-27 14:00 | NUR ---
PT AWAKE AND ALERT, PT ON ROOM AIR TO ASSESS FOR HOME O2, EPISODES OF HEART RATE 110-130, ASYMPTOMATIC, O2 RE-APPLIED. GURMEET CA MADE AWARE.
--- NOTE | 2020-10-27 15:29 | NUR ---
DCP UPDATE: In to speak w pt this afternoon regarding poss O2 @ dc. Per pt she has just talked w DAYRON Ho and has decided to go to SNF for Rehab @ DC. FATOU/PC consent obtained for any in network facility in the [facility]. [facility] in network, referral submitted per pt request. Informed pt that would need to wait for ins auth. CM to continue to follow.
[2020-10-27 15:58] VITALS: BP 100/63
[2020-10-27] MEDS: SPIRONOLACTONE 25 MG TAB PO SCH (17:21)
[2020-10-27] MEDS ORDERED: VANCOMYCIN 1GM+NS 250ML 250 ML IV SCH (19:15)
[2020-10-27] MEDS ORDERED: VANCOMYCIN PROTOCOL PER PHARMACY IV SCH (19:15)
[2020-10-27 20:51] VITALS: BP 99/61
[2020-10-27] MEDS: LOSARTAN 50 MG TABLET PO SCH (22:13)
[2020-10-28 00:39] VITALS: BP 96/74
[2020-10-28] MEDS: ZOSYN 3.375GM+NS 50ML 50 ML IV SCH ×2 (01:20→05:00)
[2020-10-28] MEDS ORDERED: PHARMACY COMMUNICATION MISC SCH (01:30)
[2020-10-28 04:20] VITALS: BP 92/65
[2020-10-28 04:58] LABS: HEMATOCRIT 35.7 % (36-48); MEAN CORPUSCULAR HEMOGLOBIN 23.3 pg (27.0-33.0); MEAN CORPUSCULAR HGB CONC 30.5 g/dL (32.0-36.0); MEAN CORPUSCULAR VOLUME 76.4 fL (79-99); RED BLOOD CELL COUNT(AUTO) 4.67 MIL/uL (4.00-5.50); RED CELL DISTRIBUTION WIDTH 15.5 % (11.0-15.5); WHITE BLOOD COUNT (AUTO) 8.8 K/uL (4.8-10.8)
[2020-10-28 05:06] LABS: CARBON DIOXIDE 27 mmol/L (21-32); CHLORIDE 105 mmol/L (101-111); CREATININE 0.9 mg/dL (0.5-1.5); GLOMERULAR FILTR. RATE CALC 66 mL/min (>60); GLUCOSE,RANDOM 61 mg/dL (70-105); POTASSIUM 4.5 mmol/L (3.5-5.1); SODIUM SERUM 140 mmol/L (136-145); UREA NITROGEN, BLOOD 25 mg/dL (7-18)
[2020-10-28] MEDS ORDERED: VANCOMYCIN 500MG+NS 100ML 100 ML IV SCH (06:00)
[2020-10-28] MEDS: INSULIN HUMULIN R 100 UNIT/ML 3ML SQ SCH ×4 (07:30→20:30)
[2020-10-28 07:56] VITALS: BP 101/57
[2020-10-28] MEDS: POTASSIUM CHLORIDE 20 MEQ ERTAB PO SCH (09:00)
[2020-10-28] MEDS: FUROSEMIDE 20 MG TABLET PO SCH ×2 (09:58→17:00)
[2020-10-28] MEDS: SPIRONOLACTONE 25 MG TAB PO SCH (09:58)
[2020-10-28] MEDS: APIXABAN 5 MG TABLET PO SCH ×2 (09:59→20:28)
[2020-10-28] MEDS: ASPIRIN 81MG TAB.CHEW PO SCH (09:59)
[2020-10-28] MEDS: ATORVASTATIN CALCIUM 40 MG TABLET PO SCH (09:59)
[2020-10-28] MEDS: METOPROLOL SUCCINATE 50 MG TAB.SR.24H PO SCH (09:59)
[2020-10-28] MEDS: POTASSIUM CHLORIDE 10% ELIXIR 20 MEQ/15 ML UDCUP PO PRN (10:05)
[2020-10-28 11:53] VITALS: BP 100/68
--- NOTE | 2020-10-28 13:13 | NUR ---
JANICE Note: Thi CASAREZ pending approval CM spoke to Ramon juarez/Thi CASAREZ, received updated clinicals. Pt pending approval at this time. EMS arranged for today in case, primary nurse to call [facility] once pt ready to DC. Primary nurse Donald SOSA aware. CM to continue to follow up.
[2020-10-28 16:00] VITALS: BP 94/65
--- NOTE | 2020-10-28 16:17 | NUR ---
RD NOTIFICATION Pt admitted due to acute systolic CHF. RD screen due to LOS X 7 days and Low BMI. Thoracentesis with a removal of 900 ml as per EMR. Pt is on strict bedrest. As per pt she has had unintentional wt loss. UBW is of 116 lbs and ABW is of 99 lbs This indicates a 17 lb wt loss in 2 months as per pt. 85% UBW- mild malnutrition. 15% WT change in 2 months- severe unintentional wt loss. Due to the above, pt is at mild-moderate malnutrition risk. Pt is currently on a HH, 75 gm, 2gm NA with a 1200 ml fluid restriction. As per pt, she eats an average of 50%. As per EMR, PO varies from 50-100%. RD RECOMMENDATION: Ensure QD - assess tolerance, increase to BID if PO <50% Monitor PO intake. As medically feasible, consider MVI supplementation When medically feasible, consider Vitamin B12 labs as well as Iron panel. Contact dietary as nutritional concerns arise. LABS: A1C 7.6, WBC 8.8, BUN 25, BG 183, TOT CA 8.0, ALB 2.3, TOT PRO 6.2, PROCAL <0.05 LBM: 10/27/20 Addendum: 10/28/20 at [address] Amended: Links added.
[2020-10-28] MEDS: LOSARTAN 50 MG TABLET PO SCH (20:27)
[2020-10-28 20:57] VITALS: BP 99/71
[2020-10-29 00:03] VITALS: BP 115/67
[2020-10-29 05:10] VITALS: BP 99/65
[2020-10-29 05:11] LABS: HEMATOCRIT 34.6 % (36-48); MEAN CORPUSCULAR HEMOGLOBIN 23.9 pg (27.0-33.0); MEAN CORPUSCULAR HGB CONC 31.5 g/dL (32.0-36.0); MEAN CORPUSCULAR VOLUME 75.9 fL (79-99); RED BLOOD CELL COUNT(AUTO) 4.56 MIL/uL (4.00-5.50); RED CELL DISTRIBUTION WIDTH 15.5 % (11.0-15.5); WHITE BLOOD COUNT (AUTO) 8.8 K/uL (4.8-10.8)
[2020-10-29] MEDS: INSULIN HUMULIN R 100 UNIT/ML 3ML SQ SCH ×4 (05:44→21:00)
[2020-10-29 05:49] LABS: POTASSIUM 5.3 mmol/L (3.5-5.1)
[2020-10-29 07:53] VITALS: BP 94/71
--- NOTE | 2020-10-29 08:00 | NUR ---
ASSESSMENT ENCOUNTERED PT IN HIGH MCINTOSH'S POSITION, A&OX3, CALM COOPERATIVE AND DOES NOT APPEAR TO BE IN ANY DISTRESS NOR ANY NEURO DEFICITS PRESENT. PT DENIES PAIN, LIGHTHEADEDNESS BUT DOES C/O D.O.E. PT IS ABLE TO TOLERATE FOODS FLUIDS AND MEDICATION WITH NO THROAT CLEARING OR COUGH. PT IS AMBULATORY, GAIT SLOW BUT STEADY TO BEDSIDE COMMODE AND BACK TO BED. CALL LIGHT WITHIN REACH.
[2020-10-29] MEDS ORDERED: ENOXAPARIN SODIUM 60 MG/0.6 ML SQ SCH (09:00)
[2020-10-29] MEDS: METOPROLOL SUCCINATE 50 MG TAB.SR.24H PO SCH (09:40)
[2020-10-29] MEDS: ATORVASTATIN CALCIUM 40 MG TABLET PO SCH (09:41)
[2020-10-29] MEDS: FUROSEMIDE 20 MG TABLET PO SCH ×2 (09:41→17:04)
[2020-10-29] MEDS: ASPIRIN 81MG TAB.CHEW PO SCH (09:41)
[2020-10-29 12:00] VITALS: BP 98/64
--- NOTE | 2020-10-29 13:00 | NUR ---
CM Note: Thi approval CM spoke to Ramon Geller, pt has approval. Received covid rapid result. EMS arranged for today, primary nurse to call [facility] once pt ready to DC. Primary nurse Donald SOSA aware. CM to continue to follow up.
[2020-10-29 16:00] VITALS: BP 96/68
--- NOTE | 2020-10-29 18:00 | NUR ---
REPORT CALLED TO ZACK HERNANDEZ PENDING EMS TRANSPORT
--- NOTE | 2020-10-29 20:00 | NUR ---
PATIENT AWAITING TRANSPORT, DENIES ANY COMPLAINTS OF PAIN OR DISCOMFORT. CALL AGUIRRE WITHIN REACH.
[2020-10-29 20:55] VITALS: BP 99/73
[2020-10-29] MEDS: LOSARTAN 50 MG TABLET PO SCH (21:00)
[2020-10-30 00:07] VITALS: BP 102/76
--- NOTE | 2020-10-30 02:06 | NUR ---
ems here for transport. transfer paperwork given to ems personnel
== END 2020-10-30 02:05 | DRG 177 ==
LOC: EDH 15:10 → EDHIP 15:11 → INTOOBSV 15:11 → OBSVTOIN 15:11 → 4DH 19:53
PROVIDERS: ADMIT Internal Medicine Critical Care Medicine; ATTEND Internal Medicine Critical Care Medicine
PROC: 06H03DZ Insertion of Intraluminal Device into Inferior Vena Cava, Percutaneous Approach (ICD-10-PCS; principal; 2020-10-24)
PROC: 0W993ZZ Drainage of Right Pleural Cavity, Percutaneous Approach (ICD-10-PCS; 2020-10-26)
DX: J15.6 Pneumonia due to other Gram-negative bacteria (principal); I50.43 Acute on chronic combined systolic (congestive) and diastolic (congestive) heart failure; I26.99 Other pulmonary embolism without acute cor pulmonale; J98.11 Atelectasis; D68.59 Other primary thrombophilia; R64 Cachexia; J91.8 Pleural effusion in other conditions classified elsewhere; I82.431 Acute embolism and thrombosis of right popliteal vein; I82.4Z2 Acute embolism and thrombosis of unspecified deep veins of left distal lower extremity; I11.0 Hypertensive heart disease with heart failure; I25.5 Ischemic cardiomyopathy; Z20.828 Contact with and (suspected) exposure to other viral communicable diseases; I25.10 Atherosclerotic heart disease of native coronary artery without angina pectoris; E78.5 Hyperlipidemia, unspecified; E11.51 Type 2 diabetes mellitus with diabetic peripheral angiopathy without gangrene; I95.1 Orthostatic hypotension; Z66 Do not resuscitate; Z68.20 Body mass index [BMI] 20.0-20.9, adult; Z95.1 Presence of aortocoronary bypass graft; Z95.810 Presence of automatic (implantable) cardiac defibrillator; Z86.711 Personal history of pulmonary embolism; Z86.718 Personal history of other venous thrombosis and embolism; Z79.01 Long term (current) use of anticoagulants; Z79.02 Long term (current) use of antithrombotics/antiplatelets; Z79.899 Other long term (current) drug therapy; Z79.82 Long term (current) use of aspirin; Z83.3 Family history of diabetes mellitus; Z82.49 Family history of ischemic heart disease and other diseases of the circulatory system
CPT/HCPCS: 32555; 36415; 36600; 37191; 71045; 71046; 71270; 80048; 80053; 80202; 82103; 82550; 82803; 82945; 82948; 83036; 83520; 83615; 83735; 83874; 83880; 83986; 84145; 84155; 84157; 84484; 85025; 85027; 85610; 85651; 85730; 86038; 86140; 86215; 86235; 86255; 86431; 87071; 87116; 87205; 87206; 87426; 88112; 88305; 89051; 93306; 93356; 93970; 97039; C1729; C1769; G0378; J1644; J1650; J1815; J1940; J2260; J2543; J3370; J3490; Q9967

== ENCOUNTER 2020-11-04 07:26 | Day surgery (SDC) | payer OTHER ==
[~2020-11-04 07:26] MED LIST changes: -ALEN70TA69 PO; -FURO40TA5 PO; +MAGN400T53 PO; +METO-408 PO; +METO10TA8 PO; -PIOG30TA70 PO; +POTA-193 PO; +SPIR100T PO; +STEGLATRO PO
[2020-11-04] MEDS ORDERED: 0.9% NACL 500ML IV.SOLN 500 ML IV SCH (08:45)
[2020-11-04 08:57] LABS: HEMATOCRIT 36.5 % (36-48); MEAN CORPUSCULAR HEMOGLOBIN 23.6 pg (27.0-33.0); MEAN CORPUSCULAR HGB CONC 31.2 g/dL (32.0-36.0); MEAN CORPUSCULAR VOLUME 75.6 fL (79-99); PLATELET COUNT (AUTO) 311 K/uL (130-400); RED BLOOD CELL COUNT(AUTO) 4.83 MIL/uL (4.00-5.50); WHITE BLOOD COUNT (AUTO) 8.5 K/uL (4.8-10.8)
[2020-11-04 09:07] LABS: INR 1.08 (0.85-1.15); PROTHROMBIN TIME 11.5 SEC (9.6-11.6)
[2020-11-04 09:08] LABS: PARTIAL THROMBOPLASTIN TIME 28.2 SEC (26.3-35.5)
[2020-11-04 09:09] LABS: ALBUMIN 2.7 g/dL (3.5-5.0); BILIRUBIN,TOTAL 0.6 mg/dL (0.2-1.0); CREATININE 0.9 mg/dL (0.5-1.5); POTASSIUM 3.6 mmol/L (3.5-5.1); TOTAL PROTEIN, SERUM 6.7 g/dL (6.0-8.3)
[2020-11-04] MEDS ORDERED: LIDOCAINE HCL 1% MDV 50ML VIAL ONE (09:57)
[2020-11-04] MEDS ORDERED: IOHEXOL-350 50ML VIAL IV ONE (10:17)
[2020-11-04] MEDS ORDERED: FENTANYL CITRATE PF 50 MCG/1 ML 2ML VIAL ONE (10:28)
[2020-11-04] MEDS ORDERED: MIDAZOLAM HCL 1 MG/ML 2ML VIAL ONE (10:28)
[2020-11-04 11:25] VITALS: BP 127/68
[2020-11-04 11:40] VITALS: BP 114/58
== END 2020-11-04 12:28 | disposition home or self-care (01) ==
LOC: DAH 07:26
PROVIDERS: ATTEND Internal Medicine Critical Care Medicine
DX: J90 Pleural effusion, not elsewhere classified (principal); I50.20 Unspecified systolic (congestive) heart failure; I25.5 Ischemic cardiomyopathy; I25.10 Atherosclerotic heart disease of native coronary artery without angina pectoris; I11.0 Hypertensive heart disease with heart failure; E11.9 Type 2 diabetes mellitus without complications; E78.5 Hyperlipidemia, unspecified; Z86.711 Personal history of pulmonary embolism; Z86.718 Personal history of other venous thrombosis and embolism; Z95.1 Presence of aortocoronary bypass graft; Z79.01 Long term (current) use of anticoagulants; I42.9 Cardiomyopathy, unspecified
CPT/HCPCS: 32550; 36415; 75989; 80053; 85027; 85610; 85730; A4215; A4216; A4221; A4222; A4223 ×3; A4606; A4663; A7048; J1644; J3010; J3490; J7040; Q9967; 76942; J2250

== ENCOUNTER → 2021-04-21 | Outpatient (CLI) | payer OTHER ==
[~2021-04-21] MED LIST changes: -POTA-193 PO; +POTA20TA12 PO
== END | disposition home or self-care (01) ==
LOC: RAH 13:06
PROVIDERS: ATTEND Psychiatry & Neurology Neurology
DX: I63.9 Cerebral infarction, unspecified (principal); R41.3 Other amnesia
CPT/HCPCS: 70450